=== PATIENT | male | born 1965 ===

== ENCOUNTER 2016-12-08 17:59 | Inpatient (IN) | payer MEDICAID ==
[2016-12-08] MEDS ORDERED: Sodium Chloride 0.9% 500 ML IV STA (18:07)
[2016-12-08] MEDS ORDERED: Albuterol-Ipratrop 3 mg / 0.5 (3 ml) UD IH STA ×2 (18:08→18:11)
[2016-12-08] MEDS ORDERED: Albuterol-Ipratrop 3 mg / 0.5 (3 ml) UD INH STA (18:08)
--- NOTE | 2016-12-08 18:10 | ED PDOC ---
HPI: SOB/CHF/COPD Time Seen by Provider: 12/08/16 18:07 Chief Complaint (Nursing): Shortness Of Breath Chief Complaint (Provider): Dyspnea History Per: Patient, EMS, Family History/Exam Limitations: no limitations Onset/Duration Of Symptoms: Days (3) Current Symptoms Are (Timing): Still Present Additional Complaint(s): Cough, nasal congestion, dyspnea, chest pain going to the back for 3 days. Tried tylenol that helped but symptoms come back in the morning. Pt. called EMS as symptoms present. Pt. with no leg pain, long distance travel, hormone tx. Has no medical issues per pt. No nausea, vomit, diarrhea, weakness, numbness, tingles. 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 Past Medical History Reviewed: Nursing Documentation, Vital Signs Vital Signs: Last Vital Signs Temp Pulse 123 H 12/08/16 18:27 Resp 22 12/08/16 18:00 BP 149/106 H 12/08/16 18:27 Pulse Ox 98 12/08/16 18:18 - Medical History PMH: No Chronic Diseases - Surgical History Surgical History: No Surg Hx - Family History Family History: States: Unknown Family Hx - Living Arrangements Living Arrangements: With Family - Social History Current smoker - smoking cessation education provided: No Alcohol: None Drugs: Denies - Home Medications Home Medications: Ambulatory Orders Medication Instructions Recorded No Known Home Med 12/08/16 - Allergies Allergies/Adverse Reactions: Allergies Allergy/AdvReac Type Severity Reaction Status Date / Time No Known Allergies Allergy Verified 12/08/16 17:59 Review of Systems ROS Statement: Except As Marked, All Systems Reviewed And Found Negative Cardiovascular: Positive for: Chest Pain Respiratory: Positive for: Cough, Shortness of Breath Musculoskeletal: Positive for: Back Pain Physical Exam - Reviewed Nursing Documentation Reviewed: Yes Vital Signs Reviewed: Yes - Physical Exam Appears: Positive for: Uncomfortable Head Exam: Positive for: ATRAUMATIC, NORMAL INSPECTION, NORMOCEPHALIC Skin: Positive for: Normal Color, Warm, DRY Eye Exam: Positive for: EOMI, Normal appearance, PERRL ENT: Positive for: Nasal Congestion Neck: Positive for: Normal, Painless ROM, Supple Cardiovascular/Chest: Positive for: Chest Non Tender, Tachycardia (sinus mild) Respiratory: Positive for: Decreased Breath Sounds, Accessory Muscle Use (mild) , Wheezing (diffuse) Gastrointestinal/Abdominal: Positive for: Normal Exam, Bowel Sounds, Soft. Negative for: Tenderness Back: Positive for: Normal Inspection. Negative for: L CVA Tenderness, R CVA Tenderness Extremity: Positive for: Normal ROM. Negative for: Tenderness, Pedal Edema Neurologic/Psych: Positive for: Alert, Oriented - Laboratory Results Result Diagrams: 12/08/16 18:17 12/08/16 18:17 Interpretation Of Abn Labs: elevated probnp - ECG ECG: Positive for: Interpreted By Me, Viewed By Me ECG Rhythm: Positive for: Sinus Tachycardia, Nonspecific Changes O2 Sat by Pulse Oximetry: 98 - Radiology X-Ray: Interpreted by Me, Viewed By Me X-Ray Interpretation: Heart Size (enlarged and vascular congestion) - Progress ED Course And Treament: 190: Stable. Dr. Paez to take over care. Fu on labs and ct. Disposition - Clinical Impression Clinical Impression: CHF (congestive heart failure) - Patient ED Disposition Is Patient to be Admitted: Transfer of Care - Disposition Disposition: Transfer of Care Disposition Time: 19:03 Condition: FAIR Patient Signed Over To: Spencer Paez
[2016-12-08 18:16] LABS: ABG ALLEN TEST YES; ARTERIAL BLOOD GAS HCO3 23.4 mmol/L (21-28); ARTERIAL BLOOD GAS PH 7.37 (7.35-7.45); ARTERIAL BLOOD GAS PO2 99 mm/Hg (80-100)
[2016-12-08 18:28] LABS: BASO % 0.3 % (0.0-2.0); EOS # 0.2 K/uL (0.0-0.7); EOS % 1.9 % (0.0-4.0); HEMATOCRIT 45.9 % (35.0-51.0); LYMPH # 1.7 K/uL (1.0-4.3); LYMPH % 16.5 % (20.0-40.0); MEAN CELL VOLUME 85.6 fl (80.0-94.0); MEAN CORPUSCULAR HEMOGLOBIN 28.1 pg (27.0-31.0); MEAN CORPUSCULAR HGB CONC 32.8 g/dL (33.0-37.0); MONO # 0.6 K/uL (0.0-0.8); MONO % 5.7 % (0.0-10.0); NEUT % 75.6 % (50.0-75.0); NRBC % 0.1 % (0.0-0.0); RED CELL DISTRIBUTION WIDTH 16.5 % (11.5-14.5); WHITE BLOOD COUNT 10.6 K/uL (4.8-10.8)
[2016-12-08] MEDS ORDERED: Iodixanol 320 MG/ML 100 ML BOTTLE IV ONE (18:35)
[2016-12-08] MEDS ORDERED: Sodium Chloride 0.9% 50 ML IV ONE (18:35)
[2016-12-08 18:45] LABS: ALB/GLOB RATIO 1.2 (1.0-2.1); ALKALINE PHOSPHATASE 135 U/L (38-126); ALT/SGPT 61 U/L (21-72); AST/SGOT 43 U/L (17-59); BILIRUBIN,TOTAL 0.8 mg/dl (0.2-1.3); BLOOD UREA NITROGEN 15 mg/dl (9-20); CALCIUM 8.9 mg/dL (8.4-10.2); CARBON DIOXIDE 27 mmol/L (22-30); CHLORIDE 104 mmol/L (98-107); GFR AFRICAN-AMERICAN > 60; GLUCOSE,RANDOM 139 mg/dL (75-110); PHOSPHOROUS 3.9 mg/dl (2.5-4.5); POTASSIUM 3.6 MMOL/L (3.6-5.0); SODIUM 142 mmol/l (132-148); TOTAL PROTEIN 7.5 G/DL (6.3-8.2)
--- NOTE | 2016-12-08 19:20 | ED PDOC ---
- Laboratory Results Result Diagrams: 12/08/16 18:17 12/08/16 18:17 - ECG O2 Sat by Pulse Oximetry: 98 Pulse Ox Interpretation: Normal - CT Scan/US CT Chest Other Rad Studies (CT/US): Interpreted By Me, Read By Radiologist, Radiology Report Reviewed - Progress Re-evaluation Time: 21:00 Condition: Re-examined, Improving,but remains with symptoms - Physician Consult Information Time Consulting Physican Contacted: 20:00 Physician Contacted: Bill Lindquist Medical Decision Making Medical Decision Makin:00 Patient transferred over to provider from Dr. Mars. Pending CT Chest, will be admit to the hospital for congestive heart failure. 19:28 CT Chest Results FINDINGS: Artifacts: Motion artifact degrades image quality. Heart, aorta and Pulmonary arteries: The heart is mildly enlarged. There is trace fluid in pericardial recesses. Aorta is normal in caliber. There is minimal atherosclerotic calcification Main pulmonary artery is normal in caliber. There are no pulmonary emboli. Aorta: See above. Lungs and pleural spaces: Trachea and main bronchi are patent. There is small blebs at the right apex. There are moderately large bilateral pleural effusions right greater than left. There are patchy parenchymal opacities in aerated lung zones bilaterally. There are atelectatic changes in the lower lobes. Mediastinum: There are moderately enlarged mediastinal nodes. There are prominent hilar nodes. Esophagus is not optimally evaluated. There is a small hiatal hernia. Thyroid: Thyroid is not optimally demonstrated. Bones/joints: There are no acute osseous abnormalities. Soft tissues: Unremarkable. Upper abdomen: There are no acute abnormalities in the visualized portion of the abdomen. IMPRESSION: Patchy bilateral parenchymal opacities suggesting pneumonia with bilateral pleural effusions right greater than left; mild cardiomegaly, no pulmonary embolus; prominent mediastinal and hilar nodes. 19:30 Patient's condition is critical, will admit under Dr. Gan. Scribe Attestation: Documented by Alon Pitts, acting as a scribe for Spencer Paez MD. Provider Scribe Attestation: All medical record entries made by the Scribe were at my direction and personally dictated by me. I have reviewed the chart and agree that the record accurately reflects my personal performance of the history, physical exam, medical decision making, and the department course for this patient. I have also personally directed, reviewed, and agree with the discharge instructions and disposition. Disposition Discussed With : Cruz Gan Doctor Will See Patient In The: ED Counseled Patient/Family Regarding: Studies Performed, Diagnosis - Clinical Impression Clinical Impression: CHF (congestive heart failure) - POA Present On Arrival: None - Disposition Disposition: Admitted as In-Patient Disposition Time: 19:30 Condition: CRITICAL
--- NOTE | 2016-12-08 19:28 | CT ---
EXAM: CT Angiography Chest With Intravenous Contrast CLINICAL HISTORY: 51 years old, male; Signs and symptoms; Shortness of breath; Additional info: Chest pain TECHNIQUE: Axial computed tomographic angiography images of the chest with intravenous contrast using pulmonary embolism protocol. This CT exam was performed using one or more of the following dose reduction techniques: automated exposure control, adjustment of the mA and/or kV according to patient size, and/or use of iterative reconstruction technique. MIP reconstructed images were created and reviewed. Coronal and sagittal reformatted images were created and reviewed. CONTRAST: 90 mL of [id number] administered intravenously. EXAM DATE/TIME: 12/08/2016 6:08 PM COMPARISON: There are no prior studies for comparison. FINDINGS: Artifacts: Motion artifact degrades image quality. Heart, aorta and Pulmonary arteries: The heart is mildly enlarged.There is trace fluid in pericardial recesses. Aorta is normal in caliber. There is minimal atherosclerotic calcification Main pulmonary artery is normal in caliber. There are no pulmonary emboli. Aorta: see above Lungs and pleural spaces: Trachea and main bronchi are patent. There is small blebs at the right apex There are moderately large bilateral pleural effusions right greater than left. There are patchy parenchymal opacities in aerated lung zones bilaterally. There are atelectatic changes in the lower lobes. Mediastinum: There are moderately enlarged mediastinal nodes. There are prominent hilar nodes. Esophagus is not optimally evaluated. There is a small hiatal hernia. Thyroid: Thyroid is not optimally demonstrated. Bones/joints: There are no acute osseous abnormalities Soft tissues: unremarkable Upper abdomen: There are no acute abnormalities in the visualized portion of the abdomen. IMPRESSION: Patchy bilateral parenchymal opacities suggesting pneumonia with bilateral pleural effusions right greater than left; mild cardiomegaly, no pulmonary embolus; prominent mediastinal and hilar nodes Additional findings as described above.
[2016-12-08] MEDS ORDERED: Azithromycin 500 MG in Sodium Chloride 0.9% 250 ML IVPB STA (19:30)
[2016-12-08] MEDS ORDERED: cefTRIAXone (Rocephin) 1 gm Inj ONE (19:37)
--- NOTE | 2016-12-08 20:20 | CP.PCM.HP ---
History of Present Illness - History of Present Illness History of Present Illness: PCP: None Chief Complaint: SOB HPI: 51 years old male with No significant past medical hx comes with a one week of SOB on exertion to now worse occurring at rest. Associated with Generalized chest pain radiating to the back for 3 days, on exertion . He refers palpitation, mild abdominal pain, edema of the lower extremities and fever, non productive cough, Throat ache, nasal congestion. no nausea, vomits, diarrhea, dysuria nor weakness. 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 Former Smoker; No alcohol recently; No illegal drugs; Live alone FH: HTN, Father with Infarct, Allergies: NKDA Present on Admission - Present on Admission Any Indicators Present on Admission: No History of DVT/PE: No History of Uncontrolled Diabetes: No Urinary Catheter: No Decubitus Ulcer Present: No Review of Systems - Constitutional Constitutional: Fever. absent: Chills, Fatigue, Headache - EENT Eyes: Requires Corrective Lenses. absent: Diplopia, Floaters, Photophobia Nose/Mouth/Throat: absent: Epistaxis, Nasal Congestion, Sinus Pain, Sinus Pressure, Hoarsness - Cardiovascular Cardiovascular: Chest Pain, Dyspnea, Palpitations - Respiratory Respiratory: Cough, Dyspnea, Chest Congestion - Gastrointestinal Gastrointestinal: absent: Abdominal Pain, Constipation, Cramping, Diarrhea - Genitourinary Genitourinary: absent: Dysuria, Flank Pain, Hematuria, Urinary Hesitance - Musculoskeletal Musculoskeletal: absent: Back Pain, Joint Swelling, Neck Pain - Integumentary Integumentary: absent: Pruritus, Rash, Skin Ulcer, Sores, Striae, Swelling - Neurological Neurological: absent: Focal Weakness, Headaches, Weakness - Psychiatric Psychiatric: Anxiety, Depression, Panic Attacks - Endocrine Endocrine: Palpitations. absent: Fatigue - Hematologic/Lymphatic Hematologic: absent: Easy Bleeding, Easy Bruising Past Patient History - Past Medical History & Family History Past Medical History?: No - Past Social History Smoking Status: Former Smoker Chewing Tobacco Use: No Cigar Use: No Alcohol: None Drugs: Denies Home Situation {Lives}: Alone - CARDIAC Hx Cardiac Disorders: No - PULMONARY Hx Respiratory Disorders: No - NEUROLOGICAL Hx Neurological Disorder: No - HEENT Hx HEENT Problems: No - RENAL Hx Chronic Kidney Disease: No - ENDOCRINE/METABOLIC Hx Endocrine Disorders: No - HEMATOLOGICAL/ONCOLOGICAL Hx Blood Disorders: No - INTEGUMENTARY Hx Dermatological Problems: No - MUSCULOSKELETAL/RHEUMATOLOGICAL Hx Musculoskeletal Disorders: No - GASTROINTESTINAL Hx Gastrointestinal Disorders: No - GENITOURINARY/GYNECOLOGICAL Hx Genitourinary Disorders: No - PSYCHIATRIC Hx Psychophysiologic Disorder: No Hx Substance Use: No - SURGICAL HISTORY Hx Surgeries: No - ANESTHESIA Hx Anesthesia: No Meds Allergies/Adverse Reactions: Allergies Allergy/AdvReac Type Severity Reaction Status Date / Time No Known Allergies Allergy Verified 12/08/16 17:59 Physical Exam - Constitutional Appears: In Acute Distress - Head Exam Head Exam: ATRAUMATIC, NORMAL INSPECTION, NORMOCEPHALIC - Eye Exam Eye Exam: EOMI, Normal appearance, PERRL Pupil Exam: PERRL - ENT Exam ENT Exam: Mucous Membranes Moist, Normal Exam, Normal External Ear Exam, Normal Oropharynx - Neck Exam Neck exam: Positive for: Full Rom, Normal Inspection. Negative for: Lymphadenopathy, Tenderness - Respiratory Exam Respiratory Exam: Rales. absent: Rhonchi, Wheezes - Cardiovascular Exam Cardiovascular Exam: RRR, +S1, +S2. absent: Gallop, JVD - GI/Abdominal Exam Additional comments: Full, Soft, non tender, +ve bowel sounds, no rebounding tenederness, no guarding. - Rectal Exam Rectal Exam: Deferred - Extremities Exam Extremities exam: Positive for: normal inspection. Negative for: calf tenderness, full ROM, tenderness - Back Exam Back exam: NORMAL INSPECTION. absent: CVA tenderness (L), CVA tenderness (R) - Neurological Exam Neurological exam: Alert, CN II-XII Intact, Oriented x3, Reflexes Normal - Psychiatric Exam Psychiatric exam: Normal Affect, Normal Mood - Skin Skin Exam: Dry, Intact, Normal Color, Warm Results - Vital Signs Recent Vital Signs: Last Vital Signs Temp 99 F 12/08/16 19:08 Pulse 106 H 12/08/16 20:03 Resp 30 H 12/08/16 19:33 BP 162/104 H 12/08/16 20:03 Pulse Ox 98 12/08/16 20:16 - Labs Result Diagrams: 12/08/16 18:17 12/08/16 18:17 Labs: Laboratory Results - last 24 hr 12/08/16 12/08/16 12/08/16 18:10 18:17 18:17 WBC 10.6 RBC 5.36 Hgb 15.1 Hct 45.9 MCV 85.6 MCH 28.1 MCHC 32.8 L RDW 16.5 H Plt Count 200 MPV 10.0 Neut % (Auto) 75.6 H Lymph % (Auto) 16.5 L [place] % (Auto) 5.7 Eos % (Auto) 1.9 Baso % (Auto) 0.3 Neut # 8.0 H Lymph # 1.7 [place] # 0.6 Eos # 0.2 Baso # 0.0 pCO2 40 pO2 99 HCO3 23.4 ABG pH 7.37 ABG Total CO2 24.3 ABG O2 Saturation 100.2 H ABG Base Excess -2.0 Noe Test Yes ABG Potassium 4.2 A-a O2 Difference 564.0 Sodium 140.0 142 Chloride 107.0 104 Glucose 126 H Lactate 2.3 H FiO2 100.0 Potassium 3.6 Carbon Dioxide 27 Anion Gap 13 BUN 15 Creatinine 1.0 Est GFR ( Amer) > 60 Est GFR (Non-Af Amer) > 60 Random Glucose 139 H Calcium 8.9 Phosphorus 3.9 Magnesium 2.0 Total Bilirubin 0.8 AST 43 ALT 61 Alkaline Phosphatase 135 H Troponin I 0.0430 NT-Pro-B Natriuret Pep 4780 H Total Protein 7.5 Albumin 4.1 Globulin 3.4 Albumin/Globulin Ratio 1.2 TSH 3rd Generation Arterial Blood Potassium 4.2 12/08/16 19:38 WBC RBC Hgb Hct MCV MCH MCHC RDW Plt Count MPV Neut % (Auto) Lymph % (Auto) [place] % (Auto) Eos % (Auto) Baso % (Auto) Neut # Lymph # [place] # Eos # Baso # pCO2 pO2 HCO3 ABG pH ABG Total CO2 ABG O2 Saturation ABG Base Excess Noe Test ABG Potassium A-a O2 Difference Sodium Chloride Glucose Lactate FiO2 Potassium Carbon Dioxide Anion Gap BUN Creatinine Est GFR ( Amer) Est GFR (Non-Af Amer) Random Glucose Calcium Phosphorus Magnesium Total Bilirubin AST ALT Alkaline Phosphatase Troponin I NT-Pro-B Natriuret Pep Total Protein Albumin Globulin Albumin/Globulin Ratio TSH 3rd Generation 3.33 Arterial Blood Potassium - EKG Data EKG comments: Sinus tachycardia 114/min - Imaging and Cardiology CT scan - chest Status: Report reviewed by me Additional comment: CT Chest Results FINDINGS: Artifacts: Motion artifact degrades image quality. Heart, aorta and Pulmonary arteries: The heart is mildly enlarged. There is trace fluid in pericardial recesses. Aorta is normal in caliber. There is minimal atherosclerotic calcification Main pulmonary artery is normal in caliber. There are no pulmonary emboli. Aorta: See above. Lungs and pleural spaces: Trachea and main bronchi are patent. There is small blebs at the right apex. There are moderately large bilateral pleural effusions right greater than left. There are patchy parenchymal opacities in aerated lung zones bilaterally. There are atelectatic changes in the lower lobes. Mediastinum: There are moderately enlarged mediastinal nodes. There are prominent hilar nodes. Esophagus is not optimally evaluated. There is a small hiatal hernia. Thyroid: Thyroid is not optimally demonstrated. Bones/joints: There are no acute osseous abnormalities. Soft tissues: Unremarkable. Upper abdomen: There are no acute abnormalities in the visualized portion of the abdomen. IMPRESSION: Patchy bilateral parenchymal opacities suggesting pneumonia with bilateral pleural effusions right greater than left; mild cardiomegaly, no pulmonary embolus; prominent mediastinal and hilar nodes. Chest x-ray Status: Image reviewed by me Additional comment: Cardiomegaly Bilatertal interstitialinfiltrate Assessment & Plan - Assessment and Plan (Free Text) Assessment: #. Pulmonary Edema #. Acute CHF Plan: 51 years old male with No significant past medical hx comes with a one week of SOB on exertion to now worse occurring at rest. Associated with Generalized chest , palpitation, mild abdominal pain, edema of the lower extremities and fever, non productive cough, Throat ache, nasal congestion. #. Pulmonary Edema. Bilateral Pneumonia as stated is less likely -IV lasix given in ED - BIPAP at 10/5 rate of 12 and FiO2 60% - Vancomycin and Zosyn given in ED - Continue Empiric Zosyn and Vancomycin and if Procalcitonin is normal then Discontinue antibiotic #. Acute CHF - Consult Dr Lindquist Cardiology - ECHO for Chamber size, wall thickness and EF, wall motion - Troponin series - Coreg/Lisinopril/ IV Lasix #. Elevated Blood Pressure - Sodium Nitroprusside started in [facility] ED - Titrate Lisinopril and Coreg - Monitor Blood pressure #. DVT Prophylaxis with Lovenox #. Code Status: Full - Date & Time Date: 12/08/16 Time: 20:20
[2016-12-08 20:21] LABS: PARTIAL THROMBOPLASTIN TIME 28.8 Seconds (25.6-37.1)
[2016-12-08 21:14] LABS: RBC URINE 3 /hpf (0-3); URINE BILIRUBIN NEGATIVE (NEGATIVE); URINE BLOOD NEGATIVE (NEGATIVE); URINE COLOR YELLOW (YELLOW); URINE GLUCOSE (UA) NEG (Normal); URINE KETONE NEGATIVE (NEGATIVE); URINE LEUKOCYTE ESTERASE NEG Leu/uL (Negative); URINE PROTEIN 100 mg/dL (NEGATIVE); URINE UROBILINOGEN 0.2-1.0 mg/dL (0.2-1.0); WBC URINE 2 /hpf (0-5)
[2016-12-08 22:02] LABS: VENOUS BLOOD GAS BASE EXCESS 2.4 mmol/L (0.0-2.0); VENOUS BLOOD GAS PCO2 58 mmHg (40-60); VENOUS BLOOD PH 7.32 (7.32-7.43)
[2016-12-09 05:14] LABS: ABG ALLEN TEST YES; ABG MECHANICAL RATE 12; ARTERIAL BLOOD GAS HCO3 26.2 mmol/L (21-28); ARTERIAL BLOOD GAS MODE BiPAP; ARTERIAL BLOOD GAS O2 CAPACITY 19.1 mL/dL (16-24); ARTERIAL BLOOD GAS O2 CONTENT 18.8 ML/dL (15-23); ARTERIAL BLOOD GAS PH 7.41 (7.35-7.45); ARTERIAL BLOOD GAS PO2 90 mm/Hg (80-100); ARTERIAL BLOOD HGB O2 SAT 94.7 % (95.0-98.0); HHB 1.5 % (0.0-5.0); METHEMOGLOBIN 1.8 % (0.0-3.0)
[2016-12-09 05:26] LABS: HEMATOCRIT 40.5 % (35.0-51.0); MEAN CELL VOLUME 85.9 fl (80.0-94.0); MEAN CORPUSCULAR HEMOGLOBIN 28.5 pg (27.0-31.0); MEAN CORPUSCULAR HGB CONC 33.1 g/dL (33.0-37.0); RED CELL DISTRIBUTION WIDTH 16.6 % (11.5-14.5); WHITE BLOOD COUNT 9.8 K/uL (4.8-10.8)
[2016-12-09 05:49] LABS: BLOOD UREA NITROGEN 12 mg/dl (9-20); CALCIUM 8.6 mg/dL (8.4-10.2); CARBON DIOXIDE 25 mmol/L (22-30); CHLORIDE 106 mmol/L (98-107); CHOLESTEROL 133 mg/dL (0-199); GFR AFRICAN-AMERICAN > 60; GLUCOSE,RANDOM 143 mg/dL (75-110); SODIUM 141 mmol/l (132-148)
--- NOTE | 2016-12-09 07:14 | CP.PCM.CON ---
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 Denies pedal edema / palpitations / chest pain CT Chest: multiple pulmonary infiltrates ++ Mediastinal and Hilar nodes EKG: Sinus tachycardia Troponin: neg BNP: 4780 Past Patient History - Past Medical History & Family History Past Medical History?: No - Past Social History Smoking Status: Former Smoker Chewing Tobacco Use: No Cigar Use: No Alcohol: None Drugs: Denies Home Situation {Lives}: Alone - CARDIAC Hx Cardiac Disorders: No - PULMONARY Hx Respiratory Disorders: No - NEUROLOGICAL Hx Neurological Disorder: No - HEENT Hx HEENT Problems: No - RENAL Hx Chronic Kidney Disease: No - ENDOCRINE/METABOLIC Hx Endocrine Disorders: No - HEMATOLOGICAL/ONCOLOGICAL Hx Blood Disorders: No - INTEGUMENTARY Hx Dermatological Problems: No - MUSCULOSKELETAL/RHEUMATOLOGICAL Hx Musculoskeletal Disorders: No - GASTROINTESTINAL Hx Gastrointestinal Disorders: No - GENITOURINARY/GYNECOLOGICAL Hx Genitourinary Disorders: No - PSYCHIATRIC Hx Psychophysiologic Disorder: No Hx Substance Use: No - SURGICAL HISTORY Hx Surgeries: No - ANESTHESIA Hx Anesthesia: No Meds Allergies/Adverse Reactions: Allergies Allergy/AdvReac Type Severity Reaction Status Date / Time No Known Allergies Allergy Verified 12/08/16 17:59 - Medications Medications: Current Medications Carvedilol (Coreg) 3.125 mg PO Q12 [facility] Enoxaparin Sodium (Lovenox) 40 mg SC DAILY [facility] PRN Reason: Protocol Furosemide (Lasix) 40 mg IV BID [place] Lisinopril (Zestril) 5 mg PO DAILY [facility] Nitroglycerin (Nitro-Bid 2% Oint) 1 inch TOP QID [facility] Physical Exam - Constitutional Appears: No Acute Distress - ENT Exam ENT Exam: Normal Exam - Neck Exam Neck exam: Positive for: Normal Inspection - Respiratory Exam Respiratory Exam: Decreased Breath Sounds, Rhonchi - Cardiovascular Exam Cardiovascular Exam: REGULAR RHYTHM Results - Vital Signs Recent Vital Signs: Last Vital Signs Temp 97.9 F 12/09/16 06:00 Pulse 74 12/09/16 06:00 Resp 20 12/09/16 06:00 BP 146/82 12/09/16 06:00 Pulse Ox 93 L 12/09/16 06:00 - Labs Result Diagrams: 12/09/16 04:40 12/09/16 04:40 Labs: Laboratory Results - last 24 hr 12/08/16 12/08/16 12/08/16 19:30 19:38 21:58 WBC RBC Hgb Hct MCV MCH MCHC RDW Plt Count pCO2 pO2 30 HCO3 ABG pH ABG Total CO2 ABG O2 Saturation ABG O2 Content ABG Base Excess ABG Hemoglobin ABG Carboxyhemoglobin POC ABG HHb (Measured) ABG Methemoglobin ABG O2 Capacity Noe Test VBG pH 7.32 VBG pCO2 58 VBG HCO3 25.5 VBG Total CO2 31.7 H VBG O2 Sat (Calc) 47.8 VBG Base Excess 2.4 H VBG Potassium 4.0 A-a O2 Difference 47.0 Hgb O2 Saturation Sodium 141.0 Chloride 105.0 Glucose 141 H Lactate 2.2 H Vent Mode Mechanical Rate FiO2 21.0 Inspiratory BiPAP Expiratory BiPAP Crit Value Called To Fernando watson Crit Value Called By 15 Crit Value Read Back Y Blood Gas Notified Time 2201 Potassium Carbon Dioxide Anion Gap BUN Creatinine Est GFR ( Amer) Est GFR (Non-Af Amer) Random Glucose Calcium Troponin I Triglycerides Cholesterol LDL Cholesterol Direct HDL Cholesterol TSH 3rd Generation 3.33 Venous Blood Potassium 4.0 Urine Color Yellow Urine Clarity Clear Urine pH 6.0 Ur Specific [place] 1.049 H Urine Protein 100 Urine Glucose (UA) Neg Urine Ketones Negative Urine Blood Negative Urine Nitrate Negative Urine Bilirubin Negative Urine Urobilinogen 0.2-1.0 Ur Leukocyte Esterase Neg Urine RBC (Auto) 3 Urine Microscopic WBC 2 12/09/16 12/09/16 12/09/16 04:40 04:40 05:05 WBC 9.8 RBC 4.71 Hgb 13.4 Hct 40.5 MCV 85.9 MCH 28.5 MCHC 33.1 RDW 16.6 H Plt Count 194 pCO2 42 pO2 90 HCO3 26.2 ABG pH 7.41 ABG Total CO2 27.9 ABG O2 Saturation 98.4 H ABG O2 Content 18.8 ABG Base Excess 1.7 ABG Hemoglobin 14.1 ABG Carboxyhemoglobin 2.0 H POC ABG HHb (Measured) 1.5 ABG Methemoglobin 1.8 ABG O2 Capacity 19.1 Noe Test Yes VBG pH VBG pCO2 VBG HCO3 VBG Total CO2 VBG O2 Sat (Calc) VBG Base Excess VBG Potassium A-a O2 Difference 285.0 Hgb O2 Saturation 94.7 L Sodium 141 Chloride 106 Glucose Lactate Vent Mode Bipap Mechanical Rate 12 FiO2 60.0 Inspiratory BiPAP 10 Expiratory BiPAP 5 Crit Value Called To Crit Value Called By Crit Value Read Back Blood Gas Notified Time Potassium 4.0 Carbon Dioxide 25 Anion Gap 14 BUN 12 Creatinine 0.7 L Est GFR ( Amer) > 60 Est GFR (Non-Af Amer) > 60 Random Glucose 143 H Calcium 8.6 Troponin I 0.0340 Triglycerides 56 Cholesterol 133 LDL Cholesterol Direct 83 HDL Cholesterol 36 TSH 3rd Generation Venous Blood Potassium Urine Color Urine Clarity Urine pH Ur Specific [place] Urine Protein Urine Glucose (UA) Urine Ketones Urine Blood Urine Nitrate Urine Bilirubin Urine Urobilinogen Ur Leukocyte Esterase Urine RBC (Auto) Urine Microscopic WBC Assessment & Plan (1) Pneumonia Status: Acute (2) CHF (congestive heart failure) Assessment and Plan: The pt has an element of CHF the main problem seems to be pulmonary in origin Status: Acute
--- NOTE | 2016-12-09 08:52 | CARD ---
APPROVED REPORT EKG Measurement Heart [id number] <Conclusion> Sinus tachycardia Possible Left atrial enlargement Left ventricular hypertrophy with repolarization abnormality Abnormal ECG
[2016-12-09] MEDS: Enoxaparin 40 mg Syringe SC SCH (08:55)
[2016-12-09] MEDS: Nitroglycerin 2% 15 INCH/30 GM TUBE TOP SCH ×4 (08:56→21:38)
--- NOTE | 2016-12-09 10:10 | RAD ---
HISTORY: Follow up Pulmonary infiltrate COMPARISON: 12/08/2016 FINDINGS: LUNGS: Technically limited examination. Extensive infiltrate mid and lower right lung. Left-sided infiltrate has resolved. Cannot evaluate lower left lung due to superimposed cardiac silhouette and underpenetration. Follow-up advised. PLEURA: Small right pleural effusion. No evidence of left pleural effusion. No pneumothorax. CARDIOVASCULAR: Mild congestive change. OSSEOUS STRUCTURES: No significant abnormalities. VISUALIZED UPPER ABDOMEN: Normal. OTHER FINDINGS: None. IMPRESSION: Extensive right-sided pulmonary infiltrate. Followup advised. Small right pleural effusion new since prior examination. No left-sided infiltrate appreciated.
--- NOTE | 2016-12-09 10:41 | RAD ---
HISTORY: Sepsis Patient COMPARISON: December 08, 2016. CT angiogram thorax FINDINGS: LUNGS: Multifocal bilateral infiltrates. PLEURA: Right pleural effusion identified. CARDIOVASCULAR: Cardiomegaly. OSSEOUS STRUCTURES: No significant abnormalities. VISUALIZED UPPER ABDOMEN: Normal. OTHER FINDINGS: None. IMPRESSION: Multifocal pulmonary alveolar infiltrates.
--- NOTE | 2016-12-09 12:00 | CP.PCM.PN ---
Subjective - Date & Time of Evaluation Date of Evaluation: 12/09/16 Time of Evaluation: 12:00 - Subjective Subjective: patient on bipap 04/13 60% ABG stable this am, no changes ECHO for today troponins negative vitals stable no acute distress Objective - Vital Signs/Intake and Output Vital Signs (last 24 hours): Temp Pulse Resp BP Pulse Ox 97.6 F 79 18 125/87 98 12/09/16 07:39 12/09/16 11:55 12/09/16 10:00 12/09/16 10:00 12/09/16 10:00 Intake and Output: 12/09/16 12/09/16 06:59 18:59 Intake Total 80 400 Output Total 500 1200 Balance -420 -800 - Medications Medications: Current Medications Carvedilol (Coreg) 3.125 mg PO Q12 [facility] Last Admin: 12/09/16 08:54 Dose: 3.125 mg Enoxaparin Sodium (Lovenox) 40 mg SC DAILY [facility] PRN Reason: Protocol Last Admin: 12/09/16 08:55 Dose: 40 mg Furosemide (Lasix) 40 mg IV BID [facility] Last Admin: 12/09/16 08:55 Dose: 40 mg Lisinopril (Zestril) 5 mg PO DAILY [facility] Last Admin: 12/09/16 08:56 Dose: 5 mg Nitroglycerin (Nitro-Bid 2% Oint) 1 inch TOP QID [facility] Last Admin: 12/09/16 08:56 Dose: 1 inch - Labs Labs: 12/09/16 04:40 12/09/16 04:40 PT 13.5 Seconds (9.8-13.1) H 12/08/16 18:17 INR 1.2 (0.9-1.2) 12/08/16 18:17 APTT 28.8 Seconds (25.6-37.1) 12/08/16 18:17 - Constitutional Appears: Non-toxic, No Acute Distress - Head Exam Head Exam: ATRAUMATIC, NORMOCEPHALIC - Eye Exam Eye Exam: EOMI, Normal appearance, PERRL Pupil Exam: NORMAL ACCOMODATION - ENT Exam ENT Exam: Mucous Membranes Moist, Normal Oropharynx - Respiratory Exam Respiratory Exam: Clear to Ausculation Bilateral, NORMAL BREATHING PATTERN - Cardiovascular Exam Cardiovascular Exam: RRR, +S1, +S2. absent: Gallop, Rubs - GI/Abdominal Exam GI & Abdominal Exam: Soft, Normal Bowel Sounds. absent: Tenderness, Mass, Organomegaly - Extremities Exam Extremities Exam: Full ROM, Normal Capillary Refill - Back Exam Back Exam: absent: CVA tenderness (L), CVA tenderness (R) - Neurological Exam Neurological Exam: Alert, Awake, Oriented x3 - Psychiatric Exam Psychiatric exam: Normal Affect, Normal Mood - Skin Skin Exam: Dry, Warm Assessment and Plan - Assessment and Plan (Free Text) Plan: 51 years old male with No significant past medical hx comes with a one week of SOB on exertion to now worse occurring at rest. Associated with Generalized chest , palpitation, mild abdominal pain, edema of the lower extremities and fever, non productive cough, Throat ache, nasal congestion. Pulmonary Edema. Bilateral Pneumonia as stated is less likely - IV lasix given in ED - Continue lasix q12 - BIPAP at 10/5 rate of 12 and FiO2 60% - Vancomycin and Zosyn given in ED - Continue Empiric Zosyn and Vancomycin and if Procalcitonin is normal then Discontinue antibiotic - follow up procalcitonin. Acute CHF - Consult Dr Lindquist Cardiology appreciated - ECHO for Chamber size, wall thickness and EF, wall motion - Troponin series negative - Coreg/Lisinopril/ IV Lasix Elevated Blood Pressure - Sodium Nitroprusside started in [facility] ED, d/c this morning, pressure well controlled - Titrate Lisinopril and Coreg - Monitor Blood pressure DVT Prophylaxis with Lovenox Code Status: Full
--- NOTE | 2016-12-09 17:56 | CP.CCUPN ---
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 He is alert and responsive, placed on BiPAP support in the ER, on 60% oxygen, 10/5 pressures and RR 17, SPO2 100%. Also, placed on Nitroprusside low dose drip , given empiric doses of Rocephin and Azithro in the RER. Other vitals: Afebrile, no fever spikes; BP 128/72 HR 82, 97% SPO2. Allergies: NKDA Home meds: none ROS: as above, no other pertinent negs or positives on 10 system review. PMFSH: all nursing and historical notes reviewed, no new pertinent data relevant to current problems. No other distress noted: EXAM- HEENT: no icterus, pupils equal and reactive NECK: no visible JVD, supple, carotids equal upstroke bilat/no bruits CHEST: decreased BS bases, no wheezes HEART: regular, distant, S1S2, no murmur audible, no rubs. ABD: soft, no increased distention, no focal tenderness, no HSM. BS hypoactive , EXT: no peripheral/ digital cyanosis, no calf tenderness or palpable cords, distal pulses intact and symmetrical NEURO: no gross focal motor deficits SKIN: no rashes LABS: WBC= 9.8 HGB= 13.4 PLTs= 194K 7.41/42/90 Na= 141 K= 4.0 HCO3= 25 BUN/Cr= 12/0.7 BS= 143 Procalc= 0.05 CXR: bibasilar haziness and interstitial changes (my interp). EKG: sinus 114, poor R progression, lateral wall st t changes. MAJOR PROBLEMS NOW: 1. CHF / Pulm Edema 2. r/o AMI PLAN: 1. 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 2. Lasix IV prn to keep negative fluid balance. 3. Hold on further empiric abx therapy, though CT Chest suggests Pneumonia. 4. ECHO. Serial Trops 5. Reprieve off BiPAP support to nasal cannula oxygen as tolerated.
[2016-12-10 04:42] LABS: ABG ALLEN TEST YES; ABG MECHANICAL RATE 12; ARTERIAL BLOOD GAS HCO3 29.6 mmol/L (21-28); ARTERIAL BLOOD GAS MODE BiPAP; ARTERIAL BLOOD GAS O2 CAPACITY 18.7 mL/dL (16-24); ARTERIAL BLOOD GAS O2 CONTENT 18.5 ML/dL (15-23); ARTERIAL BLOOD GAS PH 7.42 (7.35-7.45); ARTERIAL BLOOD GAS PO2 98 mm/Hg (80-100); ARTERIAL BLOOD HGB O2 SAT 95.1 % (95.0-98.0); HHB 1.1 % (0.0-5.0); METHEMOGLOBIN 1.8 % (0.0-3.0)
[2016-12-10 06:56] LABS: HEMATOCRIT 41.3 % (35.0-51.0); MEAN CELL VOLUME 86.1 fl (80.0-94.0); MEAN CORPUSCULAR HEMOGLOBIN 27.9 pg (27.0-31.0); MEAN CORPUSCULAR HGB CONC 32.4 g/dL (33.0-37.0); RED CELL DISTRIBUTION WIDTH 16.5 % (11.5-14.5); WHITE BLOOD COUNT 10.4 K/uL (4.8-10.8)
[2016-12-10 07:25] LABS: ALB/GLOB RATIO 1.1 (1.0-2.1); ALKALINE PHOSPHATASE 114 U/L (38-126); ALT/SGPT 58 U/L (21-72); AST/SGOT 37 U/L (17-59); BILIRUBIN,TOTAL 0.6 mg/dl (0.2-1.3); BLOOD UREA NITROGEN 22 mg/dl (9-20); CALCIUM 8.8 mg/dL (8.4-10.2); CARBON DIOXIDE 30 mmol/L (22-30); CHLORIDE 103 mmol/L (98-107); GFR AFRICAN-AMERICAN > 60; GLUCOSE,RANDOM 106 mg/dL (75-110); POTASSIUM 3.6 MMOL/L (3.6-5.0); SODIUM 140 mmol/l (132-148); TOTAL PROTEIN 6.5 G/DL (6.3-8.2)
[2016-12-10] MEDS: Enoxaparin 40 mg Syringe SC SCH (08:49)
--- NOTE | 2016-12-10 10:12 | CP.PCM.PN ---
Subjective - Date & Time of Evaluation Date of Evaluation: 12/10/16 Time of Evaluation: 10:15 - Subjective Subjective: Patient seen and examined bedside. Feeling better. On Bipap machine 04/13 12 FIO2 60 %.Saturating 100 % , afebrile WBC 10 No acute issues overnight Hemdynamically stable BP 119/66 HR 95 ABG 49/98/7.4 Objective - Vital Signs/Intake and Output Vital Signs (last 24 hours): Temp Pulse Resp BP Pulse Ox 98.3 F 95 H 19 119/66 93 L 12/10/16 08:00 12/10/16 08:50 12/10/16 08:00 12/10/16 08:50 12/10/16 08:00 Intake and Output: 12/10/16 12/10/16 06:59 18:59 Intake Total 610 120 Output Total 852 200 Balance -242 -80 - Medications Medications: Current Medications Carvedilol (Coreg) 3.125 mg PO Q12 [facility] Last Admin: 12/10/16 08:48 Dose: 3.125 mg Enoxaparin Sodium (Lovenox) 40 mg SC DAILY [facility] PRN Reason: Protocol Last Admin: 12/10/16 08:49 Dose: 40 mg Furosemide (Lasix) 40 mg IV BID [facility] Last Admin: 12/10/16 08:49 Dose: 40 mg Lisinopril (Zestril) 5 mg PO DAILY [facility] Last Admin: 12/10/16 08:50 Dose: 5 mg Nitroglycerin (Nitro-Bid 2% Oint) 1 inch TOP QID [facility] Last Admin: 12/09/16 21:38 Dose: 1 inch - Labs Labs: 12/10/16 05:30 12/10/16 05:30 PT 13.5 Seconds (9.8-13.1) H 12/08/16 18:17 INR 1.2 (0.9-1.2) 12/08/16 18:17 APTT 28.8 Seconds (25.6-37.1) 12/08/16 18:17 - Constitutional Appears: Non-toxic, No Acute Distress - Head Exam Head Exam: ATRAUMATIC, NORMAL INSPECTION, NORMOCEPHALIC - Eye Exam Eye Exam: EOMI, Normal appearance, PERRL Pupil Exam: NORMAL ACCOMODATION - ENT Exam ENT Exam: Mucous Membranes Moist, Normal Exam - Neck Exam Neck Exam: Full ROM, Normal Inspection - Respiratory Exam Respiratory Exam: Clear to Ausculation Bilateral, Rales, NORMAL BREATHING PATTERN. absent: Accessory Muscle Use, Rhonchi, Wheezes, Respiratory Distress - Cardiovascular Exam Cardiovascular Exam: REGULAR RHYTHM, RRR, +S1, +S2. absent: JVD - GI/Abdominal Exam GI & Abdominal Exam: Soft, Normal Bowel Sounds. absent: Guarding, Tenderness, Rebound - Rectal Exam Rectal Exam: Deferred - Extremities Exam Extremities Exam: Full ROM, Normal Capillary Refill, Normal Inspection. absent : Calf Tenderness, Pedal Edema - Back Exam Back Exam: NORMAL INSPECTION - Neurological Exam Neurological Exam: Alert, Awake, CN II-XII Intact, Oriented x3 - Psychiatric Exam Psychiatric exam: Normal Affect, Normal Mood - Skin Skin Exam: Dry, Intact, Normal Color, Warm Assessment and Plan - Assessment and Plan (Free Text) Assessment: 51 years old male with No significant past medical hx came with one month history f progressive SOB on exertion that now occurring at rest. Associated with left sided chest , back neck pain radiating to the arm , palpitation, mild abdominal pain, edema of the lower extremities and fever, non productive cough, Throat ache, nasal congestion. Patient states that his symptoms have been present for almost 1 month but has progressed CXR showed pulmonary edema and bilateral patchy infiltrates He was placed on BIPAP , started on diuretics . 1.Pulmonary Edema, suspected Bilateral Pneumonia vs interstitial lung disease Continue lasix 40 mg q12 Improving BIPAP at 10/5 rate of 12 and FiO2 60%. Place on 3 L O2 via [place] Vancomycin and Zosyn given in ED Procalcitonin normal Follow up Echo Pulmonary eval with dr. Bunn Resume Rocephin and Zithromax empirically 2. Suspected Acute CHF exacerbation Follow up Echo Cardiology consult appreciated Continue lasix , coreg , lisinopril ril/ IV Lasix 3. Hypertension uncontroleld Continue Lisinopril and Coreg Sodium Nitroprusside iscontinued 4.DVT Prophylaxis Lovenox Code Status: Full
[2016-12-10] MEDS: Nitroglycerin 2% 15 INCH/30 GM TUBE TOP SCH ×4 (11:02→21:11)
[2016-12-10] MEDS: Azithromycin 500 MG in Sodium Chloride 0.9% 250 ML IVPB SCH (11:05)
--- NOTE | 2016-12-10 11:36 | CP.CCUPN ---
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 Borderline oxygenation noted when on nasal cannula with SPO2 91%, but not distressed, but +PLUMMER noted. He denies any CP or SOB at bed rest. No fevers or chills, no cough, dizziness, palpitations. Other vitals: Afebrile, no fever spikes; BP 128/72 HR 82, 97% SPO2. I/Os last 24H= 1500/2552ml ROS: as above, no other pertinent negs or positives on 10 system review. PMFSH: all nursing and historical notes reviewed, no new pertinent data relevant to current problems. No other distress noted: EXAM- HEENT: no icterus, pupils equal and reactive NECK: no visible JVD, supple, carotids equal upstroke bilat/no bruits CHEST: decreased BS bases, no wheezes HEART: regular, distant, S1S2, no murmur audible, no rubs. ABD: soft, no increased distention, no focal tenderness, no HSM. BS hypoactive , EXT: no peripheral/ digital cyanosis, no calf tenderness or palpable cords, distal pulses intact and symmetrical NEURO: no gross focal motor deficits SKIN: no rashes LABS: WBC= 10.4 HGB= 13.4 PLTs= 196K 7.42/49/98 Na= 140 K= 3.6 HCO3= 30 BUN/Cr= 22/0.9 BS= 106 Procalc= 0.05 Trops all negative CXR: marked improvement in bibasilar haziness and interstitial changes (my interp). MAJOR PROBLEMS NOW: 1. CHF / Pulm Edema 2. r/o Cardiomyopathy, diastolic dysfx. PLAN: 1. Lasix IV prn to keep negative fluid balance. 3. Rocephin / Azithro empiric abx therapy started today as per PMD, CT Chest suggests Pneumonia. 4. ECHO results pending from 12/08/16 study. 5. Reprieve off BiPAP support to nasal cannula oxygen as tolerated.
--- NOTE | 2016-12-10 11:46 | RAD ---
HISTORY: r/o pneumonia COMPARISON: 12/09/2016 FINDINGS: LUNGS: Pulmonary vascular congestion improved since the prior radiograph. PLEURA: Minimal residual pleural effusion on the right. Questionable effusion on the left. CARDIOVASCULAR: Stable, enlarged cardiomediastinal silhouette. OSSEOUS STRUCTURES: No significant abnormalities. VISUALIZED UPPER ABDOMEN: Upper abdomen is suboptimally evaluated. OTHER FINDINGS: None. IMPRESSION: Pulmonary vascular congestion improved since prior radiograph. Minimal residual pleural effusion on the right. Possible small pleural effusion on the left.
--- NOTE | 2016-12-10 12:26 | CARD ---
APPROVED REPORT EXAM: Two-dimensional and M-mode echocardiogram with Doppler and color Doppler. Other Information Quality : [employer] : INDICATION Chest Pain 2D DIMENSIONS IVSd1.14 (0.7-1.1cm)LVDd6.29 (3.9-5.9cm) PWd1.09 (0.7-1.1cm)IVSs1.38 (0.8-1.2cm) LVDs4.90 (2.5-4.0cm)FS (%) 22.2 % PWs1.64 (0.8-1.2cm) M-Mode DIMENSIONS Left Atrium (MM)3.82 (2.5-4.0cm)IVSd1.04 (0.7-1.1cm) Aortic Root3.48 (2.2-3.7cm)LVDd7.12 (4.0-5.6cm) Aortic Cusp Exc.2.00 (1.5-2.0cm)PWd1.08 (0.7-1.1cm) IVSs1.40 cmFS (%) 18 % LVDs5.84 (2.0-3.8cm)PWs1.60 cm Aortic Valve AoV Peak Oxolqxiq107.8cm/sAoV VTI29.1cmAO Peak GR.11mmHg LVOT Peak Mzwwymol412.7cm/Dragan Mean GR.7mmHg Mitral Valve MV E Bbkdaljd803.8cm/sMV E Peak Gr.77mmHgMV DECEL [id number] MV A Gwpondiz80.2cm/sMV LQF24awM/A ratio1.6 MVA (PHT)5.16cm2 TDI Lateral E' Peak V7.17cm/sMedial E' Peak V3.75cm/sE/Lateral E'15.5 E/Medial E'29.5 Pulmonary Valve PV Peak Rirgotqq768.6cm/s Tricuspid Valve TR Peak Hmzobzwh731tt/sRAP [id number] Peak Gr.17mmHg [id number] LEFT VENTRICLE The Left Ventricle isglobular and moderately dilated. There is normal left ventricular wall thickness. Left ventricle systolic function is moderately impaired. The Ejection Fraction is 20-25%. There was generalised hypokinesia, particularly pronounced in the inferior wall. Transmitral Doppler flow pattern is Grade II-pseudonormal filling dynamics. RIGHT VENTRICLE The right ventricle is normal size. There is normal right ventricular wall thickness. The right ventricular systolic function is normal. ATRIA The left atrium size is at upper limits of normal. The right atrium size is normal. AORTIC VALVE The aortic valve is normal in structure and function. No aortic regurgitation is present. There is no aortic valvular stenosis. MITRAL VALVE The mitral valve is normal in structure. There is no evidence of mitral valve prolapse. There is no mitral valve stenosis. Mitral regurgitation is severe. TRICUSPID VALVE The tricuspid valve is normal in structure. There is mild tricuspid regurgitation. Right ventricular systolic pressure is estimated at 46 mmHg. There is mild-moderate pulmonary hypertension. PULMONIC VALVE The pulmonary valve is normal in structure and function. There is no pulmonic valvular regurgitation. GREAT VESSELS The aortic root is normal in size. The IVC is normal in size and collapses >50% with inspiration. PERICARDIAL EFFUSION The pericardium appears normal. <Conclusion> The Left Ventricle isglobular and moderately dilated. There is normal left ventricular wall thickness. There was generalised hypokinesia, particularly pronounced in the inferior wall. Left ventricle systolic function is moderately impaired. The Ejection Fraction is 20-25%. Transmitral Doppler flow pattern is Grade II-pseudonormal filling dynamics. Mitral regurgitation is severe. There is mild tricuspid regurgitation. There is mild-moderate pulmonary hypertension.
--- NOTE | 2016-12-10 15:44 | CP.PCM.CON ---
History of Present Illness - History of Present Illness History of Present Illness: Pulmonary Consult. 51 y/o M admitted to [facility] [place] for severe SOB on DOA with no relief, associated to dry cough. Worsening symptoms: PLUMMER, chest pain LSB, L lateral chestwall and posterior ribs with deep breathing. Worsening symptoms: PLUMMER Aggravated factor: SOB when ambulates 2 blocks. As per Pt, SOB began about a month ago but symptoms start getting worse last week, eventually came to ER [facility] and was admitted. He has a Hx of Childhood Bronchial Asthma, Pt remember been admitted for PNA in 2003 while in [place] and was hospitalized. 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 Pt denied: Fever, chills, productive cough, bloody cough, legs pain, CP, LOC, sick contact, recent travel. CT Chest on 12/08/16 shows: Moderately large b/l pleural effusion, opacities suggesting PNA. CXR 12/09/16 showed: Extensive R lung PNA. CXR today 12/10/16 shows: Pulmonary vascular congestion improved. Review of Systems - Constitutional Constitutional: Other (negative) - EENT Eyes: Other (negative) Ears: Other (negative) Nose/Mouth/Throat: Other (negative) - Cardiovascular Cardiovascular: Other (negative) - Respiratory Respiratory: Cough, Dyspnea, Dyspnea on Exertion, Pain on Inspiration, Chest Congestion - Musculoskeletal Musculoskeletal: Other (negative) - Integumentary Integumentary: Other (negative) - Neurological Neurological: Other (negative) - Psychiatric Psychiatric: Other (negative) - Endocrine Endocrine: Other (negative) - Hematologic/Lymphatic Hematologic: Other (negative) Past Patient History - Past Medical History & Family History Past Medical History?: No Pertinent Family History: Unknown. - Past Social History Smoking Status: Former Smoker Chewing Tobacco Use: No Cigar Use: No Alcohol: None Drugs: Denies Home Situation {Lives}: Alone - CARDIAC Hx Cardiac Disorders: No - PULMONARY Hx Respiratory Disorders: No - NEUROLOGICAL Hx Neurological Disorder: No - HEENT Hx HEENT Problems: No - RENAL Hx Chronic Kidney Disease: No - ENDOCRINE/METABOLIC Hx Endocrine Disorders: No - HEMATOLOGICAL/ONCOLOGICAL Hx Blood Disorders: No - INTEGUMENTARY Hx Dermatological Problems: No - MUSCULOSKELETAL/RHEUMATOLOGICAL Hx Musculoskeletal Disorders: No - GASTROINTESTINAL Hx Gastrointestinal Disorders: No - GENITOURINARY/GYNECOLOGICAL Hx Genitourinary Disorders: No - PSYCHIATRIC Hx Psychophysiologic Disorder: No Hx Substance Use: No - SURGICAL HISTORY Hx Surgeries: No - ANESTHESIA Hx Anesthesia: No Meds Home Medications: Home Medication List Medication Instructions Recorded Confirmed Type Aspirin [Aspirin Chewable] 81 mg PO DAILY 12/12/16 Rx Atorvastatin [Lipitor] 10 mg PO DAILY #30 tab 12/12/16 Rx Carvedilol [Coreg] 3.125 mg PO Q12 #60 tab 12/12/16 Rx Furosemide [Lasix] 40 mg PO DAILY #30 tablet 12/12/16 Rx Lisinopril [Zestril] 5 mg PO DAILY #30 tab 12/12/16 Rx Spironolactone [Aldactone] 12.5 mg PO DAILY #30 tablet 12/12/16 Rx Allergies/Adverse Reactions: Allergies Allergy/AdvReac Type Severity Reaction Status Date / Time No Known Allergies Allergy Verified 12/08/16 17:59 - Medications Medications: Current Medications Carvedilol (Coreg) 3.125 mg PO Q12 [facility] Last Admin: 12/10/16 08:48 Dose: 3.125 mg Enoxaparin Sodium (Lovenox) 40 mg SC DAILY [facility] PRN Reason: Protocol Last Admin: 12/10/16 08:49 Dose: 40 mg Furosemide (Lasix) 40 mg IV BID [facility] Last Admin: 12/10/16 08:49 Dose: 40 mg Ceftriaxone Sodium 1 gm/ (Sodium Chloride) 100 mls @ 100 mls/hr IVPB DAILY [facility] Last Admin: 12/10/16 11:04 Dose: 100 mls/hr Azithromycin 500 mg/ Sodium (Chloride) 250 mls @ 250 mls/hr IVPB DAILY [facility] Last Admin: 12/10/16 11:05 Dose: 250 mls/hr Lisinopril (Zestril) 5 mg PO DAILY [facility] Last Admin: 12/10/16 08:50 Dose: 5 mg Nitroglycerin (Nitro-Bid 2% Oint) 1 inch TOP QID [facility] Last Admin: 12/10/16 13:47 Dose: 1 inch Physical Exam - Constitutional Appears: No Acute Distress - Head Exam Head Exam: NORMAL INSPECTION - Eye Exam Eye Exam: PERRL - ENT Exam ENT Exam: Normal Oropharynx - Neck Exam Neck exam: Positive for: Normal Inspection - Respiratory Exam Respiratory Exam: Decreased Breath Sounds (at bases, ), Rhonchi (expiratory at bases) Additional comments: Tenderness: LSB, Left lateral chest wall and posterior ribs with deep breathing. - Cardiovascular Exam Cardiovascular Exam: REGULAR RHYTHM - GI/Abdominal Exam GI & Abdominal Exam: Normal Bowel Sounds, Soft - Extremities Exam Extremities exam: Positive for: full ROM - Back Exam Back exam: NORMAL INSPECTION - Neurological Exam Neurological exam: Alert, Oriented x3 Additional comments: No focal motor sensory deficit. - Psychiatric Exam Psychiatric exam: Normal Mood - Skin Skin Exam: Warm Results - Vital Signs Recent Vital Signs: Last Vital Signs Temp 98.6 F 12/10/16 12:00 Pulse 85 12/10/16 13:49 Resp 18 12/10/16 13:49 BP 115/62 12/10/16 13:49 Pulse Ox 98 12/10/16 13:49 reviewed Eric - Labs Result Diagrams: 12/11/16 05:30 12/11/16 05:30 Labs: Laboratory Results - last 24 hr 12/09/16 12/10/16 12/10/16 04:40 04:35 05:30 WBC 10.4 RBC 4.80 Hgb 13.4 Hct 41.3 MCV 86.1 MCH 27.9 MCHC 32.4 L RDW 16.5 H Plt Count 196 pCO2 49 H pO2 98 HCO3 29.6 H ABG pH 7.42 ABG Total CO2 33.3 H ABG O2 Saturation 98.9 H ABG O2 Content 18.5 ABG Base Excess 6.1 H ABG Hemoglobin 13.8 ABG Carboxyhemoglobin 2.0 H POC ABG HHb (Measured) 1.1 ABG Methemoglobin 1.8 ABG O2 Capacity 18.7 Noe Test Yes A-a O2 Difference 269.0 Hgb O2 Saturation 95.1 Vent Mode Bipap Mechanical Rate 12 FiO2 60.0 Inspiratory BiPAP 10 Expiratory BiPAP 5 Sodium Potassium Chloride Carbon Dioxide Anion Gap BUN Creatinine Est GFR ( Amer) Est GFR (Non-Af Amer) Random Glucose Calcium Total Bilirubin AST ALT Alkaline Phosphatase Total Protein Albumin Globulin Albumin/Globulin Ratio Procalcitonin <= 0.05 L HIV-1 Ab Rapid Screen 12/10/16 12/10/16 05:30 12:10 WBC RBC Hgb Hct MCV MCH MCHC RDW Plt Count pCO2 pO2 HCO3 ABG pH ABG Total CO2 ABG O2 Saturation ABG O2 Content ABG Base Excess ABG Hemoglobin ABG Carboxyhemoglobin POC ABG HHb (Measured) ABG Methemoglobin ABG O2 Capacity Noe Test A-a O2 Difference Hgb O2 Saturation Vent Mode Mechanical Rate FiO2 Inspiratory BiPAP Expiratory BiPAP Sodium 140 Potassium 3.6 Chloride 103 Carbon Dioxide 30 Anion Gap 10 BUN 22 H Creatinine 0.9 Est GFR ( Amer) > 60 Est GFR (Non-Af Amer) > 60 Random Glucose 106 Calcium 8.8 Total Bilirubin 0.6 AST 37 ALT 58 Alkaline Phosphatase 114 Total Protein 6.5 Albumin 3.5 Globulin 3.0 Albumin/Globulin Ratio 1.1 Procalcitonin HIV-1 Ab Rapid Screen Non reactive reviewed J.P. - EKG Data EKG comments: reviewed J.P. - Imaging and Cardiology Chest x-ray Status: Report reviewed by me (Pasquale.) CT scan - chest Status: Report reviewed by me ([email or web address]) Assessment & Plan (1) Respiratory failure Status: Acute Priority: High Comment: Improved. (2) Pneumonia Status: Ruled-out Priority: High (3) CHF (congestive heart failure) Status: Acute Priority: Medium - Assessment and Plan (Free Text) Plan: Continue Zithromax, Rocephin and rest of Tx. F/U CT Chest in AM. ICU time: 60 minutes - Date & Time Date: 12/10/16 Time: 11:20
[2016-12-11 07:08] LABS: HEMATOCRIT 43.3 % (35.0-51.0); MEAN CELL VOLUME 86.6 fl (80.0-94.0); MEAN CORPUSCULAR HEMOGLOBIN 27.9 pg (27.0-31.0); MEAN CORPUSCULAR HGB CONC 32.3 g/dL (33.0-37.0); RED CELL DISTRIBUTION WIDTH 16.4 % (11.5-14.5); WHITE BLOOD COUNT 9.4 K/uL (4.8-10.8)
[2016-12-11 07:18] LABS: BLOOD UREA NITROGEN 19 mg/dl (9-20); CALCIUM 8.8 mg/dL (8.4-10.2); CARBON DIOXIDE 32 mmol/L (22-30); CHLORIDE 102 mmol/L (98-107); GFR AFRICAN-AMERICAN > 60; GLUCOSE,RANDOM 106 mg/dL (75-110); POTASSIUM 3.9 MMOL/L (3.6-5.0); SODIUM 141 mmol/l (132-148)
--- NOTE | 2016-12-11 07:29 | CP.PCM.PN ---
Subjective - Date & Time of Evaluation Date of Evaluation: 12/11/16 Time of Evaluation: 08:45 - Subjective Subjective: Patient seen and examined bedside. Feeling better. Still complained of some left sided chest pain. Denies any SOB No acute issues overnight BP 105/65 HR 71 o2Sat [id number] 5 on 2 L O2 via Nc Echo showedd dilated LV with generalized hypokinesia mostly inferior wall , EF 20-25 % , severe MR ,mild TR mild to moderate pulmonary hypertension Objective - Vital Signs/Intake and Output Vital Signs (last 24 hours): Temp Pulse Resp BP Pulse Ox 98.5 F 71 31 H 105/65 93 L 12/11/16 04:00 12/11/16 04:00 12/11/16 04:00 12/11/16 04:00 12/11/16 04:00 Intake and Output: 12/11/16 12/11/16 06:59 18:59 Output Total 500 Balance -500 - Medications Medications: Current Medications Carvedilol (Coreg) 3.125 mg PO Q12 [facility] Last Admin: 12/10/16 21:09 Dose: Not Given Enoxaparin Sodium (Lovenox) 40 mg SC DAILY [facility] PRN Reason: Protocol Last Admin: 12/10/16 08:49 Dose: 40 mg Furosemide (Lasix) 40 mg IV BID [facility] Last Admin: 12/10/16 16:45 Dose: 40 mg Ceftriaxone Sodium 1 gm/ (Sodium Chloride) 100 mls @ 100 mls/hr IVPB DAILY [facility] Last Admin: 12/10/16 11:04 Dose: 100 mls/hr Azithromycin 500 mg/ Sodium (Chloride) 250 mls @ 250 mls/hr IVPB DAILY [facility] Last Admin: 12/10/16 11:05 Dose: 250 mls/hr Lisinopril (Zestril) 5 mg PO DAILY [facility] Last Admin: 12/10/16 08:50 Dose: 5 mg Nitroglycerin (Nitro-Bid 2% Oint) 1 inch TOP QID [facility] Last Admin: 12/10/16 21:11 Dose: 1 inch - Labs Labs: 12/11/16 05:30 12/11/16 05:30 PT 13.5 Seconds (9.8-13.1) H 12/08/16 18:17 INR 1.2 (0.9-1.2) 12/08/16 18:17 APTT 28.8 Seconds (25.6-37.1) 12/08/16 18:17 - Constitutional Appears: Non-toxic, No Acute Distress - Head Exam Head Exam: ATRAUMATIC, NORMAL INSPECTION, NORMOCEPHALIC - Eye Exam Eye Exam: EOMI, Normal appearance, PERRL Pupil Exam: NORMAL ACCOMODATION - ENT Exam ENT Exam: Mucous Membranes Moist, Normal Exam - Neck Exam Neck Exam: Full ROM, Normal Inspection - Respiratory Exam Respiratory Exam: Clear to Ausculation Bilateral, NORMAL BREATHING PATTERN. absent: Rales, Rhonchi, Wheezes, Respiratory Distress - Cardiovascular Exam Cardiovascular Exam: REGULAR RHYTHM, RRR, +S1, +S2. absent: JVD - GI/Abdominal Exam GI & Abdominal Exam: Soft, Normal Bowel Sounds. absent: Distended, Guarding, Tenderness, Rebound - Rectal Exam Rectal Exam: Deferred - Extremities Exam Extremities Exam: Full ROM, Normal Capillary Refill, Normal Inspection. absent : Calf Tenderness, Pedal Edema - Back Exam Back Exam: NORMAL INSPECTION - Neurological Exam Neurological Exam: Alert, Awake, CN II-XII Intact, Oriented x3 - Psychiatric Exam Psychiatric exam: Normal Affect, Normal Mood - Skin Skin Exam: Dry, Intact, Normal Color, Warm Assessment and Plan - Assessment and Plan (Free Text) Assessment: 51 years old male with No significant past medical hx came with one month history of progressive SOB on exertion that now occurring at rest. Associated with left sided chest , back neck pain radiating to the arm , palpitation, mild abdominal pain, edema of the lower extremities and fever, non productive cough, Throat ache, nasal congestion. Patient states that his symptoms have been present for almost 1 month but has progressed CXR showed pulmonary edema and bilateral patchy infiltrates He was placed on BIPAP , started on diuretics with improvement. Echo official report showed impaired LV function with EF 20-25 5 , hypokinesis and severe MR 1.Pulmonary Edema most likely secondary to acute CHF exacerbation improving Echo showedd dilated LV with generalized hypokinesia mostly inferior wall , EF 20-25 % , severe MR ,mild TR mild to moderate pulmonary hypertension Continue lasix 40 mg q12 was on BIPAP and at present saturating well on 3 L O2 via Nc Continue coreg, lisinopril, lasix cardiology consulted unlikely pneumonia since patient is afebrile, has normal WBC and procalcitonin is normal on Rocephin and Zithromax empirically Pulmonary eval with Dr. Bunn appreciated will repeat CT chest without contrast 3. Hypertension better controlled Continue Lisinopril and Coreg 4.DVT Prophylaxis Lovenox Code Status: Full
[2016-12-11] MEDS: Enoxaparin 40 mg Syringe SC SCH (08:41)
[2016-12-11] MEDS: Nitroglycerin 2% 15 INCH/30 GM TUBE TOP SCH ×4 (08:41→21:22)
[2016-12-11] MEDS: Azithromycin 500 MG in Sodium Chloride 0.9% 250 ML IVPB SCH (10:00)
--- NOTE | 2016-12-11 15:34 | CP.PCM.PN ---
Subjective - Date & Time of Evaluation Date of Evaluation: 12/11/16 Time of Evaluation: 12:30 - Subjective Subjective: F/U Respiratory Failure. Pt c/o of chest pain LSB, Left lateral chest wall and posterior with deep breathing Objective - Vital Signs/Intake and Output Vital Signs (last 24 hours): Temp Pulse Resp BP Pulse Ox 98.1 F 76 18 100/53 L 95 12/11/16 12:00 12/11/16 14:00 12/11/16 14:00 12/11/16 14:00 12/11/16 14:00 Intake and Output: 12/11/16 12/11/16 06:59 18:59 Intake Total 1150 Output Total 500 700 Balance -500 450 - Medications Medications: Current Medications Aspirin (Aspirin Chewable) 81 mg PO DAILY [facility] Last Admin: 12/11/16 12:36 Dose: 81 mg Atorvastatin Calcium (Lipitor) 10 mg PO DAILY [facility] Last Admin: 12/11/16 12:36 Dose: 10 mg Carvedilol (Coreg) 3.125 mg PO Q12 [facility] Last Admin: 12/11/16 08:40 Dose: 3.125 mg Enoxaparin Sodium (Lovenox) 40 mg SC DAILY [facility] PRN Reason: Protocol Last Admin: 12/11/16 08:41 Dose: 40 mg Furosemide (Lasix) 40 mg IV BID [facility] Last Admin: 12/11/16 08:40 Dose: 40 mg Lisinopril (Zestril) 5 mg PO DAILY [facility] Last Admin: 12/11/16 08:42 Dose: 5 mg Nitroglycerin (Nitro-Bid 2% Oint) 1 inch TOP QID [facility] Last Admin: 12/11/16 12:37 Dose: Not Given - Labs Labs: 12/11/16 05:30 12/11/16 05:30 PT 13.5 Seconds (9.8-13.1) H 12/08/16 18:17 INR 1.2 (0.9-1.2) 12/08/16 18:17 APTT 28.8 Seconds (25.6-37.1) 12/08/16 18:17 - Constitutional Appears: No Acute Distress - Head Exam Head Exam: NORMAL INSPECTION - Eye Exam Eye Exam: PERRL - ENT Exam ENT Exam: Normal Oropharynx - Neck Exam Neck Exam: Normal Inspection - Respiratory Exam Respiratory Exam: Decreased Breath Sounds (at bases), Rhonchi (few scattered) Additional comments: Minimal tenderness LSB, L Lateral chest wall and posterior with deep breathing. - Cardiovascular Exam Cardiovascular Exam: REGULAR RHYTHM - GI/Abdominal Exam GI & Abdominal Exam: Soft, Normal Bowel Sounds - Extremities Exam Extremities Exam: Full ROM - Back Exam Back Exam: NORMAL INSPECTION - Neurological Exam Neurological Exam: Alert, Oriented x3 Additional comments: No focal motor sensory deficit. - Psychiatric Exam Psychiatric exam: Normal Mood - Skin Skin Exam: Warm Assessment and Plan (1) Respiratory failure Assessment & Plan: Improved Status: Acute (2) Pneumonia Assessment & Plan: Improved. Status: Ruled-out (3) CHF (congestive heart failure) Status: Acute - Assessment and Plan (Free Text) Plan: CT Chest showed minimal residual airspace opacities both lungs. Continue Zithromax, Rocephin and rest of Tx. ICU time: 35 minutes
--- NOTE | 2016-12-11 15:39 | CT ---
PROCEDURE: CT Chest without contrast HISTORY: r/o pneumonia COMPARISON: 12/08/2016 TECHNIQUE: Contiguous axial images were obtained through the chest without intravenous contrast enhancement. Sagittal and coronal reconstructions were performed. Radiation dose (DLP): 699.29 mGy-cm. This CT exam was performed using one or more of the following dose reduction techniques: Automated exposure control, adjustment of the mA and/or kV according to patient size, and/or use of iterative reconstruction technique. FINDINGS: LUNGS: Marked reduction in the previously seen multifocal airspace opacities throughout both lungs. Minimal residual airspace opacities seen throughout both lungs. 3-4 millimeter nodules in the right upper lobe. These are best seen on series 3, image 47 and 49. Extensive breathing artifact on the lung bases limiting evaluation for small lung nodules. Mild atelectatic changes. MEDIASTINUM: Unremarkable thoracic aorta. No aneurysm. Enlarged heart. Main pulmonary artery unremarkable. No vascular congestion. Scattered mediastinal lymphadenopathy. Hilar lymphadenopathy suboptimally seen due to lack of intravenous contrast. PLEURA: Interval resolution of pleural effusions. BONES: No fracture. No destructive lesion. UPPER ABDOMEN: Grossly unremarkable. OTHER FINDINGS: Hypodensities in the thyroid gland noted. IMPRESSION: Marked reduction in the previously seen multifocal airspace opacities throughout both lungs with minimal residual opacity seen. Interval resolution of pleural effusions. Millimeter pulmonary nodules in the right upper lobe. Repeat chest CT should be obtained in 6-12 months. Hypodensities in the thyroid gland seen. Dedicated ultrasound recommended.
[2016-12-12 08:16] VITALS: O2SAT 98
--- NOTE | 2016-12-12 08:27 | CARD ---
APPROVED REPORT EKG Measurement Heart [id number] [place] 152P39 [id number] <Conclusion> Poor data quality, interpretation may be adversely affected Normal sinus rhythm Possible Left atrial enlargement Left ventricular hypertrophy with repolarization abnormality Abnormal ECG
[2016-12-12] MEDS: Enoxaparin 40 mg Syringe SC SCH (09:42)
[2016-12-12] MEDS: Nitroglycerin 2% 15 INCH/30 GM TUBE TOP SCH ×2 (10:25→14:47)
--- NOTE | 2016-12-12 10:53 | CP.PCM.DIS ---
Provider - Provider Date of Admission: 12/08/16 19:27 Attending physician: Cruz Gan Consults: Pulm: Dr Bunn Cardio: Dr Lindquist Time Spent in preparation of Discharge (in minutes): 40 Diagnosis - Discharge Diagnosis (1) Acute respiratory failure with hypoxia Status: Acute (2) Pulmonary edema with congestive heart failure with reduced left ventricular function Status: Acute (3) Acute combined systolic and diastolic congestive heart failure Status: Acute (4) HTN (hypertension) Status: Acute (5) Pneumonia Status: Ruled-out Priority: High (6) DVT prophylaxis Status: Acute Hospital Course - Lab Results Lab Results: Micro Results 12/09/16 08:51 Naris MRSA Culture (Admit) - Final MRSA NOT DETECTED 12/08/16 19:30 Urine Urine Culture - Final No Growth (<1,000 CFU/ML) Most Recent Lab Values WBC 9.4 K/uL (4.8-10.8) 12/11/16 05:30 RBC 5.01 Mil/uL (4.40-5.90) 12/11/16 05:30 Hgb 14.0 g/dL (12.0-18.0) 12/11/16 05:30 Hct 43.3 % (35.0-51.0) 12/11/16 05:30 MCV 86.6 fl (80.0-94.0) 12/11/16 05:30 MCH 27.9 pg (27.0-31.0) 12/11/16 05:30 MCHC 32.3 g/dL (33.0-37.0) L 12/11/16 05:30 RDW 16.4 % (11.5-14.5) H 12/11/16 05:30 Plt Count 209 K/uL (130-400) 12/11/16 05:30 MPV 10.0 fl (7.2-11.7) 12/08/16 18:17 Neut % (Auto) 75.6 % (50.0-75.0) H 12/08/16 18:17 Lymph % (Auto) 16.5 % (20.0-40.0) L 12/08/16 18:17 [place] % (Auto) 5.7 % (0.0-10.0) 12/08/16 18:17 Eos % (Auto) 1.9 % (0.0-4.0) 12/08/16 18:17 Baso % (Auto) 0.3 % (0.0-2.0) 12/08/16 18:17 Neut # 8.0 K/uL (1.8-7.0) H 12/08/16 18:17 Lymph # 1.7 K/uL (1.0-4.3) 12/08/16 18:17 [place] # 0.6 K/uL (0.0-0.8) 12/08/16 18:17 Eos # 0.2 K/uL (0.0-0.7) 12/08/16 18:17 Baso # 0.0 K/uL (0.0-0.2) 12/08/16 18:17 PT 13.5 Seconds (9.8-13.1) H 12/08/16 18:17 INR 1.2 (0.9-1.2) 12/08/16 18:17 APTT 28.8 Seconds (25.6-37.1) 12/08/16 18:17 pCO2 49 mm/Hg (35-45) H 12/10/16 04:35 pO2 98 mm/Hg (80-100) 12/10/16 04:35 HCO3 29.6 mmol/L (21-28) H 12/10/16 04:35 ABG pH 7.42 (7.35-7.45) 12/10/16 04:35 ABG Total CO2 33.3 mmol/L (22-28) H 12/10/16 04:35 ABG O2 Saturation 98.9 % (95-98) H 12/10/16 04:35 ABG O2 Content 18.5 ML/dL (15-23) 12/10/16 04:35 ABG Base Excess 6.1 mmol/L (-2.0-3.0) H 12/10/16 04:35 ABG Hemoglobin 13.8 g/dL (11.7-17.4) 12/10/16 04:35 ABG Carboxyhemoglobin 2.0 % (0.5-1.5) H 12/10/16 04:35 POC ABG HHb (Measured) 1.1 % (0.0-5.0) 12/10/16 04:35 ABG Methemoglobin 1.8 % (0.0-3.0) 12/10/16 04:35 ABG O2 Capacity 18.7 mL/dL (16-24) 12/10/16 04:35 Noe Test Yes 12/10/16 04:35 ABG Potassium 4.2 mmol/L (3.6-5.2) 12/08/16 18:10 VBG pH 7.32 (7.32-7.43) 12/08/16 21:58 VBG pCO2 58 mmHg (40-60) 12/08/16 21:58 VBG HCO3 25.5 mmol/L 12/08/16 21:58 VBG Total CO2 31.7 mmol/L (22-28) H 12/08/16 21:58 VBG O2 Sat (Calc) 47.8 % (40-65) 12/08/16 21:58 VBG Base Excess 2.4 mmol/L (0.0-2.0) H 12/08/16 21:58 VBG Potassium 4.0 mmol/L (3.6-5.2) 12/08/16 21:58 A-a O2 Difference 269.0 mm/Hg 12/10/16 04:35 Hgb O2 Saturation 95.1 % (95.0-98.0) 12/10/16 04:35 Sodium 141.0 mmol/L (132-148) 12/08/16 21:58 Chloride 105.0 mmol/L (98-107) 12/08/16 21:58 Glucose 141 mg/dL (75-110) H 12/08/16 21:58 Lactate 2.2 mmol/L (0.7-2.1) H 12/08/16 21:58 Vent Mode Bipap 12/10/16 04:35 Mechanical Rate 12 12/10/16 04:35 FiO2 60.0 % 12/10/16 04:35 Inspiratory BiPAP 10 12/10/16 04:35 Expiratory BiPAP 5 12/10/16 04:35 Crit Value Called To Fernando watson 12/08/16 21:58 Crit Value Called By 15 12/08/16 21:58 Crit Value Read Back Y 12/08/16 21:58 Blood Gas Notified Time 220112/08/16 21:58 Sodium 141 mmol/l (132-148) 12/11/16 05:30 Potassium 3.9 MMOL/L (3.6-5.0) 12/11/16 05:30 Chloride 102 mmol/L (98-107) 12/11/16 05:30 Carbon Dioxide 32 mmol/L (22-30) H 12/11/16 05:30 Anion Gap 11 (10-20) 12/11/16 05:30 BUN 19 mg/dl (9-20) 12/11/16 05:30 Creatinine 1.1 mg/dL (0.8-1.5) 12/11/16 05:30 Est GFR ( Amer) > 60 12/11/16 05:30 Est GFR (Non-Af Amer) > 60 12/11/16 05:30 Random Glucose 106 mg/dL (75-110) 12/11/16 05:30 Calcium 8.8 mg/dL (8.4-10.2) 12/11/16 05:30 Phosphorus 3.9 mg/dl (2.5-4.5) 12/08/16 18:17 Magnesium 2.0 MG/DL (1.6-2.3) 12/08/16 18:17 Total Bilirubin 0.6 mg/dl (0.2-1.3) 12/10/16 05:30 AST 37 U/L (17-59) 12/10/16 05:30 ALT 58 U/L (21-72) 12/10/16 05:30 Alkaline Phosphatase 114 U/L (38-126) 12/10/16 05:30 Troponin I 0.0210 ng/mL (0.00-0.120) 12/11/16 11:45 NT-Pro-B Natriuret Pep 4780 pg/ml (0-900) H 12/08/16 18:17 Total Protein 6.5 G/DL (6.3-8.2) 12/10/16 05:30 Albumin 3.5 g/dL (3.5-5.0) 12/10/16 05:30 Globulin 3.0 gm/dL (2.2-3.9) 12/10/16 05:30 Albumin/Globulin Ratio 1.1 (1.0-2.1) 12/10/16 05:30 Triglycerides 56 mg/DL (0-149) 12/09/16 04:40 Cholesterol 133 mg/dL (0-199) 12/09/16 04:40 LDL Cholesterol Direct 83 mg/dL (0-129) 12/09/16 04:40 HDL Cholesterol 36 MG/DL (30-70) 12/09/16 04:40 Procalcitonin <= 0.05 NG/ML (0.19-0.49) L 12/09/16 04:40 TSH 3rd Generation 3.33 mIU/ML (0.46-4.68) 12/08/16 19:38 Arterial Blood Potassium 4.2 mmol/L (3.6-5.2) 12/08/16 18:10 Venous Blood Potassium 4.0 mmol/L (3.6-5.2) 12/08/16 21:58 Urine Color Yellow (YELLOW) 12/08/16 19:30 Urine Clarity Clear (Clear) 12/08/16 19:30 Urine pH 6.0 (5.0-8.0) 12/08/16 19:30 Ur Specific [place] 1.049 (1.003-1.030) H 12/08/16 19:30 Urine Protein 100 mg/dL (NEGATIVE) 12/08/16 19:30 Urine Glucose (UA) Neg mg/dL (Normal) 12/08/16 19:30 Urine Ketones Negative mg/dL (NEGATIVE) 12/08/16 19:30 Urine Blood Negative (NEGATIVE) 12/08/16 19:30 Urine Nitrate Negative (NEGATIVE) 12/08/16 19:30 Urine Bilirubin Negative (NEGATIVE) 12/08/16 19:30 Urine Urobilinogen 0.2-1.0 mg/dL (0.2-1.0) 12/08/16 19:30 Ur Leukocyte Esterase Neg [place]/uL (Negative) 12/08/16 19:30 Urine RBC (Auto) 3 /hpf (0-3) 12/08/16 19:30 Urine Microscopic WBC 2 /hpf (0-5) 12/08/16 19:30 HIV-1 Ab Rapid Screen Non reactive (NON REAC) 12/10/16 12:10 - Hospital Course Hospital Course: 51 years old male with no significant past medical hx came with one month history of progressive SOB on exertion that now occurring at rest. Associated with left sided chest , back neck pain radiating to the arm , palpitation, mild abdominal pain, edema of the lower extremities and fever, non productive cough, Throat ache, nasal congestion. Patient states that his symptoms have been present for almost 1 month but has progressed CXR showed pulmonary edema and bilateral patchy infiltrates He was placed on BIPAP , started on diuretics with improvement. Echo official report showed impaired LV function with EF 20-25 5 , hypokinesis and severe MR 1. Acute Respiratory Failure , hypoxic sec to Pulmonary Edema, Pneumonia ruled out initially placed on Bipap - his sxs improved with diuresis Saturation now normal on Room Air 2.Pulmonary Edema most likely secondary to acute CHF exacerbation, systolic and diastolic , EF 20-25% improving Echo showedd dilated LV with generalized hypokinesia mostly inferior wall , EF 20-25 % , severe MR ,mild TR mild to moderate pulmonary hypertension Pt was started on IV lasix 40 mg q12 - will change to PO was on BIPAP and at present saturating well on Room Air Continue coreg, lisinopril, lasix , add Aldactone cardiology consulted unlikely pneumonia since patient is afebrile, has normal WBC and procalcitonin is normal initially started on Rocephin and Zithromax empirically Pulmonary eval with Dr. Bunn appreciated repeat CT chest without contrast shows improvement of infiltrates and effusion 3. Hypertension better controlled Continue Lisinopril and Coreg, Lasix and Aldactone 4. Chest Pressure , ACS ruled out, likely due to Pulm Edema needs further Cardiac work up as outpt Troponin x 3 negative 4.DVT Prophylaxis Lovenox Discharge Exam - Head Exam Head Exam: NORMAL INSPECTION Discharge Plan - Discharge Medications Prescriptions: Atorvastatin [Lipitor] 10 mg PO DAILY #30 tab Carvedilol [Coreg] 3.125 mg PO Q12 #60 tab Furosemide [Lasix] 40 mg PO DAILY #30 tablet Lisinopril [Zestril] 5 mg PO DAILY #30 tab Spironolactone [Aldactone] 12.5 mg PO DAILY #30 tablet - Follow Up Plan Condition: CRITICAL Disposition: HOME/ ROUTINE Instructions: Heart Failure (DC), Heart Failure (GEN), Pacemaker (DC), Pacemaker (GEN), Pulmonary Edema (DC), Pulmonary Edema (GEN), Ascites (DC), Ascites (GEN) Additional Instructions: ff up [facility] Clinic in 1 wk Cardio clinic ff up in 2 wks need Thyroid Sonogram as outpt needs rpt CT scan in 6 mos Fluid restriction, low salt diet Referrals: [facility] [Outside] Clinical Quality Measures - CQM - Heart Failure Ejection Fraction: Less Than 40 % Left Ventricular Function to be assessed after discharge: Yes BC Inhibitor Prescribed: Yes Beta-Diane Prescribed: Carvedilol Angiotensin II Receptor Diane Prescribed: No Contraindication/Reason for not providing: pt on BC, BP low normal AnticoagulationTherapy for Atrial Fibrillation/Atrialflutter: No Contraindication/Reason for not providing: not indicated Aldosterone Antagonist Prescribed: Yes Hydralazine Nitrate Prescribed: No Contraindication/Reason for not providing: low BP Implantable Cardioverter Defibrillator Therapy: No Contraindication/Reason for not providing: Pt will ff up with Cardio as outpt Cardiac Resynchronization Therapy Prescribed: No Contraindication/Reason for not providing: not indicated Will be discharged to: Home Follow Up Date (must be within 7 days from discharge): 12/16/16 Follow Up Time: 09:00 - Date & Time of Discharge Summary Date of Discharge Summary: 12/12/16 Time of Discharge Summary: 16:32
[2016-12-12 12:15] VITALS: PULSE 78; RESP 18; TEMP 98.4
--- NOTE | 2016-12-12 13:16 | CP.PCM.PN ---
Subjective - Date & Time of Evaluation Date of Evaluation: 12/12/16 Time of Evaluation: 11:10 - Subjective Subjective: F/U Respiratory failure. Pt breathing better, no c/o, no SOB today. Objective - Vital Signs/Intake and Output Vital Signs (last 24 hours): Temp Pulse Resp BP Pulse Ox 98.4 F 78 18 110/72 98 12/12/16 12:00 12/12/16 12:00 12/12/16 12:00 12/12/16 12:00 12/12/16 12:00 Intake and Output: 12/12/16 12/12/16 06:59 18:59 Intake Total 200 Output Total 400 Balance -200 - Medications Medications: Current Medications Aspirin (Aspirin Chewable) 81 mg PO DAILY [facility] Last Admin: 12/12/16 09:46 Dose: 81 mg Atorvastatin Calcium (Lipitor) 10 mg PO DAILY [facility] Last Admin: 12/12/16 09:41 Dose: 10 mg Carvedilol (Coreg) 3.125 mg PO Q12 [facility] [place] Last Admin: 12/12/16 09:41 Dose: Not Given Enoxaparin Sodium (Lovenox) 40 mg SC DAILY [facility] PRN Reason: Protocol Last Admin: 12/12/16 09:42 Dose: 40 mg Furosemide (Lasix) 40 mg IV BID [facility] [place] Last Admin: 12/12/16 09:43 Dose: 40 mg Lisinopril (Zestril) 5 mg PO DAILY [facility] [place] Last Admin: 12/12/16 09:42 Dose: Not Given Nitroglycerin (Nitro-Bid 2% Oint) 1 inch TOP QID [facility] [place] Last Admin: 12/12/16 10:25 Dose: 1 inch - Labs Labs: 12/11/16 05:30 12/11/16 05:30 PT 13.5 Seconds (9.8-13.1) H 12/08/16 18:17 INR 1.2 (0.9-1.2) 12/08/16 18:17 APTT 28.8 Seconds (25.6-37.1) 12/08/16 18:17 - Constitutional Appears: No Acute Distress - Head Exam Head Exam: NORMAL INSPECTION - Eye Exam Eye Exam: PERRL - ENT Exam ENT Exam: Normal Oropharynx - Neck Exam Neck Exam: Normal Inspection - Respiratory Exam Respiratory Exam: NORMAL BREATHING PATTERN - Cardiovascular Exam Cardiovascular Exam: REGULAR RHYTHM - GI/Abdominal Exam GI & Abdominal Exam: Soft, Normal Bowel Sounds - Extremities Exam Extremities Exam: Normal Inspection - Back Exam Back Exam: NORMAL INSPECTION - Neurological Exam Neurological Exam: Alert, Oriented x3 Additional comments: No focal motor sensory deficit. - Psychiatric Exam Psychiatric exam: Normal Mood - Skin Skin Exam: Warm Assessment and Plan (1) Respiratory failure Status: Resolved (2) Pneumonia Status: Ruled-out (3) CHF (congestive heart failure) Status: Acute - Assessment and Plan (Free Text) Plan: Pt Pulmonary clear for discharge.
[2016-12-12 15:05] VITALS: BP 110/70
--- NOTE | 2016-12-13 16:47 | CARD ---
APPROVED REPORT EKG Measurement Heart [id number] [place] 160P26 [id number] <Conclusion> Normal sinus rhythm Possible Left atrial enlargement Left ventricular hypertrophy Nonspecific T wave abnormality Abnormal ECG
== END 2016-12-12 15:00 | disposition home or self-care (01) | DRG 189 ==
LOC: H.ER 17:59 → H.ERHOLD 19:27 → H.ICU/CCU 12-09 00:22 → H.TEL 12-11 16:15
PROVIDERS: ADMIT Internal Medicine; ATTEND Internal Medicine
PROC: 5A09457 Assistance with Respiratory Ventilation, 24-96 Consecutive Hours, Continuous Positive Airway Pressure (ICD-10-PCS; principal; 2016-12-08)
DX: J96.01 Acute respiratory failure with hypoxia (principal); I50.43 Acute on chronic combined systolic (congestive) and diastolic (congestive) heart failure; I11.0 Hypertensive heart disease with heart failure; I27.2 Other secondary pulmonary hypertension; Z87.891 Personal history of nicotine dependence

== ENCOUNTER 2017-12-02 13:08 | Emergency (ER) | payer SELFPAY ==
[2017-12-02 13:09] VITALS: BMI 32.4
[2017-12-02 13:40] VITALS: BP 109/69; PULSE 77; RESP 18; TEMP 98.1; O2SAT 100
[2017-12-02] MEDS ORDERED: Lidocaine 2% Inj (20ml) SC ONE (13:50)
[2017-12-02] MEDS ORDERED: Tdap Vaccine 0.5 ml Vial (10-64 yrs) IM ONE ×2 (13:50→14:43)
[2017-12-02] MEDS ORDERED: Lidocaine 1% Inj (20ml) ONE (13:52)
--- NOTE | 2017-12-02 13:55 | ED PDOC ---
Upper Extremity Pain/Injury Time Seen by Provider: 12/02/17 13:46 Chief Complaint (Nursing): Abnormal Skin Integrity Chief Complaint (Provider): Left index finger laceration History Per: Patient Additional Complaint(s): Lopez Haynes is a 52 year old right hand dominant male, with a past medical history of hypertension, who presents with left index finger laceration s/p chopping vegetables with knife and cutting digit by accident. He applied pressure dressing and came to ED. He denies any numbness to affected digit but does have mild pain. Patient is not sure of last tetanus booster. PMD: [facility] Past Medical History Reviewed: Historical Data, Nursing Documentation, Vital Signs Vital Signs: Last Vital Signs Temp 98.1 F 12/02/17 13:38 Pulse 77 12/02/17 13:38 Resp 18 12/02/17 13:38 BP 109/69 12/02/17 13:38 Pulse Ox 100 12/02/17 13:38 - Medical History PMH: HTN, Hypercholesterolemia - Surgical History Surgical History: No Surg Hx - Family History Family History: States: CAD - Living Arrangements Living Arrangements: With Family - Social History Current smoker - smoking cessation education provided: No Alcohol: None Drugs: Denies - Immunization History Hx Tetanus Toxoid Vaccination: No (not sure of last booster) - Home Medications Home Medications: Ambulatory Orders Medication Instructions Recorded Aspirin [Aspirin Chewable] 81 mg PO DAILY 12/12/16 Atorvastatin [Lipitor] 10 mg PO DAILY #30 tab 12/12/16 Carvedilol [Coreg] 3.125 mg PO Q12 #60 tab 12/12/16 Furosemide [Lasix] 40 mg PO DAILY #30 tablet 12/12/16 Lisinopril [Zestril] 5 mg PO DAILY #30 tab 12/12/16 Spironolactone [Aldactone] 12.5 mg PO DAILY #30 tablet 12/12/16 Ibuprofen [Motrin Tab] 800 mg PO Q8 PRN #20 tab 12/02/17 - Allergies Allergies/Adverse Reactions: Allergies Allergy/AdvReac Type Severity Reaction Status Date / Time No Known Allergies Allergy Verified 12/02/17 13:38 Review of Systems ROS Statement: Except As Marked, All Systems Reviewed And Found Negative Musculoskeletal: Positive for: Hand Pain (left index finger laceration) Physical Exam - Reviewed Nursing Documentation Reviewed: Yes Vital Signs Reviewed: Yes - Physical Exam Appears: Positive for: Well, Non-toxic, No Acute Distress Head Exam: Positive for: ATRAUMATIC, NORMOCEPHALIC Skin: Positive for: Normal Color. Negative for: Rash Eye Exam: Positive for: Normal appearance Rectal: Positive for: Hemorrhoids Extremity: Positive for: Other (2 cm superficial laceration to dorsal aspect of left index finger with mild bleeding, full rom of affected digit, sensation intact) Neurologic/Psych: Positive for: Alert, Oriented - ECG O2 Sat by Pulse Oximetry: 100 (RA) Pulse Ox Interpretation: Normal Medical Decision Making Medical Decision Making: Time Initial Impression: 52 y/o male with left index finger laceration. Initial Plan: --Adacel 0.5 ml IM --Laceration repair See procedure note, patient given wound care instructions, rx motrin for pain control. Scribe Attestation: Documented by Hank Giron, acting as a scribe for Valeria Dinh PA-C Provider Scribe Attestation: All medical record entries made by the Scribe were at my direction and personally dictated by me. I have reviewed the chart and agree that the record accurately reflects my personal performance of the history, physical exam, medical decision making, and the department course for this patient. I have also personally directed, reviewed, and agree with the discharge instructions and disposition. Procedures - Laceration/Wound Repair 2 cm left index finger laceration Wound Length (cm): 2 Wound's Depth, Shape: superficial Wound Explored: clean Betadine Prep?: Yes Anesthesia: 1% Lidocaine Volume Anesthetic (ccs): 6 Wound Debrided: minimal Wound Repaired With: Sutures Suture Size/Type: 5:0, nylon (simple runnng suture) Layer Closure?: No Wound Complexity: Simple Sterile Dressing Applied?: Yes Splint Applied?: No Sling Applied?: No Progress: Procedure was tolerated well by patient, minimal blood loss, no complications. Tetanus booster ordered. Disposition - Clinical Impression Clinical Impression: Finger laceration, Requires a booster tetanus - Patient ED Disposition Is Patient to be Admitted: No Counseled Patient/Family Regarding: Diagnosis, Need For Followup, Rx Given - Disposition Referrals: [facility] [Outside] Disposition: Routine/Home Disposition Time: 14:28 Condition: STABLE Additional Instructions: Keep wound clean and dry. Wash daily with soap and water. Take rx meds as directed as needed for pain. Apply Neosporin once per day only. Wound check 2- 3 days, suture removal 10-14 days. Prescriptions: Ibuprofen [Motrin Tab] 800 mg PO Q8 PRN #20 tab PRN Reason: Pain, Moderate (4-7) Instructions: Laceration Repair With Stitches (DC), Diphtheria and Tetanus Toxoids, and Acellular Pertussis Vaccine Forms: [employer] (Albanian) Print Language: SCOTTISH
== END 2017-12-02 14:45 | disposition home or self-care (01) ==
LOC: H.ER 13:08
DX: S61.211A Laceration without foreign body of left index finger without damage to nail, initial encounter (principal); Z23 Encounter for immunization; W26.0XXA Contact with knife, initial encounter; Y93.G1 Activity, food preparation and clean up; Y92.9 Unspecified place or not applicable; I10 Essential (primary) hypertension; Z79.82 Long term (current) use of aspirin; Z82.49 Family history of ischemic heart disease and other diseases of the circulatory system; E78.00 Pure hypercholesterolemia, unspecified

== ENCOUNTER 2017-12-09 09:34 | Emergency (ER) | payer OTHER, SELFPAY ==
[2017-12-09 09:40] VITALS: BP 133/81; PULSE 81; O2SAT 99
[2017-12-09 09:42] VITALS: BMI 36.5
--- NOTE | 2017-12-09 10:28 | ED PDOC ---
HPI: Wound Care - HPI Time Seen by Provider: 12/09/17 09:52 Chief Complaint (Nursing): Suture/Staple Removal Chief Complaint (Provider): Suture Removal History Per: Patient History Of Present Illness: 52 year old male with a history of CHF, hypercholesterolemia, and HTN presents to the ED for suture removal placed 8 days ago on the left second digit. He denies any redness, swelling, discharge, fever, injury, or medical complaint. PMD: [facility] Exam Limitations: no limitations Location Of Injury: Left: Hand (second digit) Past Medical History Vital Signs: Last Vital Signs Temp 98 F 12/09/17 09:38 Pulse 81 12/09/17 09:38 Resp BP 133/81 12/09/17 09:38 Pulse Ox 99 12/09/17 09:38 - Medical History PMH: CHF, HTN, Hypercholesterolemia Denies: Arthritis, Asthma, Atrial Fibrillation, COPD, Diabetes, Chronic Kidney Disease, Seizures - Surgical History Surgical History: Denies: CABG, Pacemaker - Family History Family History: States: Unknown Family Hx, CAD - Social History Current smoker - smoking cessation education provided: No Ex-Smoker (has not smoked in the last 12 months): No Alcohol: None Drugs: Denies - Immunization History Hx Tetanus Toxoid Vaccination: No (not sure of last booster) - Home Medications Home Medications: Ambulatory Orders Medication Instructions Recorded Aspirin [Aspirin Chewable] 81 mg PO DAILY 12/12/16 Atorvastatin [Lipitor] 10 mg PO DAILY #30 tab 12/12/16 Carvedilol [Coreg] 3.125 mg PO Q12 #60 tab 12/12/16 Furosemide [Lasix] 40 mg PO DAILY #30 tablet 12/12/16 Lisinopril [Zestril] 5 mg PO DAILY #30 tab 12/12/16 Spironolactone [Aldactone] 12.5 mg PO DAILY #30 tablet 12/12/16 Ibuprofen [Motrin Tab] 800 mg PO Q8 PRN #20 tab 12/02/17 - Allergies Allergies/Adverse Reactions: Allergies Allergy/AdvReac Type Severity Reaction Status Date / Time No Known Allergies Allergy Verified 12/02/17 13:38 Review of Systems ROS Statement: Except As Marked, All Systems Reviewed And Found Negative Constitutional: Negative for: Fever Musculoskeletal: Positive for: Other (no redness, no swelling, discharge to left second digit) Physical Exam - Reviewed Nursing Documentation Reviewed: Yes Vital Signs Reviewed: Yes - Physical Exam Appears: Positive for: Non-toxic, No Acute Distress Skin: Positive for: Normal Color, Warm, DRY Extremity: Positive for: Other (incision well healed, running suture in place). Negative for: Swelling Neurologic/Psych: Positive for: Alert (x3), Oriented - ECG O2 Sat by Pulse Oximetry: 99 (RA) Pulse Ox Interpretation: Normal Medical Decision Making Medical Decision Making: Time: 10:12 --Well healed incision on the left posterior second digit, running sutures in place, sutures removed without difficulty, finger has full range of motion, and dressing applied. Scribe Attestation: Documented by Poppy Hope, acting as a scribe for Lizeth Skinner MD Provider Scribe Attestation: All medical record entries made by the Scribe were at my direction and personally dictated by me. I have reviewed the chart and agree that the record accurately reflects my personal performance of the history, physical exam, medical decision making, and the department course for this patient. I have also personally directed, reviewed, and agree with the discharge instructions and disposition. Disposition - Clinical Impression Clinical Impression: Removal of suture - Disposition Referrals: [facility] [Outside] Disposition Time: 10:10 Condition: GOOD Instructions: Stitches Removal Forms: [employer] (Irish) Print Language: SOUTH KOREAN
[2017-12-09 10:54] VITALS: RESP 16; TEMP 98
== END 2017-12-09 10:52 | disposition home or self-care (01) ==
LOC: H.ER 09:34
DX: Z48.02 Encounter for removal of sutures (principal)

== ENCOUNTER 2018-05-21 07:11 | Emergency (ER) | payer SELFPAY ==
[2018-05-21 07:22] VITALS: BMI 35.2
--- NOTE | 2018-05-21 08:24 | ED PDOC ---
Lower Extremity Pain/Injury Time Seen by Provider: 05/21/18 08:08 Chief Complaint (Nursing): Lower Extremity Problem/Injury Chief Complaint (Provider): Right foot and ankle pain History Per: Patient History/Exam Limitations: no limitations Onset/Duration Of Symptoms: Days Current Symptoms Are (Timing): Better Additional History Per: Patient Additional Complaint(s): 53yo male, with history of hypertension, high cholesterol, comes to ER reporting right foot and ankle pain x 1 week, but worsening since yesterday. Patient states he is unable to walk or sleep due to the pain; he has not taken any pain medications. Of note, patient states he had a similar episode in the past with foot and ankle pain and associated redness and swelling and was tested for gout, with negative findings. Patient currently denies any redness, swelling or warmth to his ankle. He reports occasional calf and hip pain as well. He denies any falls, direct injury to the foot, weakness, or numbness of the foot. Patient has no additional complaints. PMD: [facility] Past Medical History Reviewed: Historical Data, Nursing Documentation, Vital Signs Vital Signs: Last Vital Signs Temp 98.7 F 05/21/18 07:20 Pulse 77 05/21/18 07:20 Resp 18 05/21/18 07:20 BP 137/88 05/21/18 07:20 Pulse Ox 100 05/21/18 07:20 - Medical History PMH: CHF, HTN, Hypercholesterolemia Denies: Arthritis, Asthma, Atrial Fibrillation, COPD, Diabetes, Chronic Kidney Disease, Seizures - Surgical History Surgical History: No Surg Hx Denies: CABG, Pacemaker - Family History Family History: States: CAD - Immunization History Hx Tetanus Toxoid Vaccination: No (not sure of last booster) - Home Medications Home Medications: Ambulatory Orders Medication Instructions Recorded Aspirin [Aspirin Chewable] 81 mg PO DAILY 12/12/16 Atorvastatin [Lipitor] 10 mg PO DAILY #30 tab 12/12/16 Carvedilol [Coreg] 3.125 mg PO Q12 #60 tab 12/12/16 Furosemide [Lasix] 40 mg PO DAILY #30 tablet 12/12/16 Lisinopril [Zestril] 5 mg PO DAILY #30 tab 12/12/16 Spironolactone [Aldactone] 12.5 mg PO DAILY #30 tablet 12/12/16 Ibuprofen [Motrin Tab] 800 mg PO Q8 PRN #20 tab 12/02/17 Colchicine 0.6 mg PO TID #15 tablet 05/21/18 oxyCODONE/Acetaminophen [Percocet 1 ea PO Q6 PRN #9 tab 05/21/18 5/325 mg Tab] - Allergies Allergies/Adverse Reactions: Allergies Allergy/AdvReac Type Severity Reaction Status Date / Time No Known Allergies Allergy Verified 12/02/17 13:38 Review of Systems ROS Statement: Except As Marked, All Systems Reviewed And Found Negative Constitutional: Negative for: Fever, Chills Musculoskeletal: Positive for: Foot Pain (right foot and ankle pain) Neurological: Negative for: Weakness, Numbness Physical Exam - Reviewed Nursing Documentation Reviewed: Yes Vital Signs Reviewed: Yes - Physical Exam Appears: Positive for: Non-toxic Skin: Positive for: Normal Color Pulses-Dorsalis Pedis (R): 2+ Extremity: Positive for: Normal ROM (FROM at right ankle but with pain), Te nderness (tenderness to right ankle, right lateral and medial foot.), Capillary Refill (< 2 seconds). Negative for: Pedal Edema, Calf Tenderness, Deformity, Swelling Neurologic/Psych: Positive for: Alert, Oriented. Negative for: Motor/Sensory Deficits - Laboratory Results Result Diagrams: 05/21/18 09:06 05/21/18 09:06 - ECG O2 Sat by Pulse Oximetry: 100 (RA) Pulse Ox Interpretation: Normal Medical Decision Making Medical Decision Making: Impression: Right foot and ankle pain Differential: Arthritis, gout, pseudo-gout, r/o DVT Plan: -- Labs -- XR Right ankle -- US Doppler right lower extremities 0930 XR Right Ankle FINDINGS: BONES: No acute fracture or destructive bony lesion identified. JOINTS: Normal. No osteoarthritis. Ankle mortise maintained. Talar dome intact SOFT TISSUES: Normal. OTHER FINDINGS: None. IMPRESSION: Unremarkable right ankle radiographs. 0949 Case discussed with podiatry resident, who will evaluate patient in ER. 1029 Labs reviewed, including ESR and uric acid and no clinically significant abnormalities noted. 1122 US Doppler FINDINGS: COMMON FEMORAL VEIN: Unremarkable. SUPERFICIAL FEMORAL VEIN: Unremarkable. POPLITEAL VEIN: Unremarkable. POSTERIOR TIBIAL VEIN: Unremarkable. OTHER FINDINGS: None. IMPRESSION: No evidence of deep venous thrombosis in the right lower extremity. 1313 Patient seen and evaluated by podiatry resident who states per Dr. Benson, patient to be discharged home with rs for colchicine and follow up at podiatry office. Patient informed of plan and is agreeable. On reassessment, he reports improvement of symptoms and is stable for discharge. Scribe Attestation: Documented by Elana Calderón, acting as a scribe for Spencer Paez MD. Provider Scribe Attestation: All medical record entries made by the Scribe were at my direction and personally dictated by me. I have reviewed the chart and agree that the record accurately reflects my personal performance of the history, physical exam, medical decision making, and the department course for this patient. I have also personally directed, reviewed, and agree with the discharge instructions and disposition. Disposition - Clinical Impression Clinical Impression: Ankle pain, Gout attack - Patient ED Disposition Is Patient to be Admitted: No Doctor Will See Patient In The: Office Counseled Patient/Family Regarding: Studies Performed, Diagnosis, Need For Followup - Disposition Referrals: Podiatry Clinic [Outside] Disposition: Routine/Home Disposition Time: 13:04 Condition: GOOD Additional Instructions: [facility], thank you for letting us take care of you today. Your provider was Spencer Paez MD and you were treated for RIGHT FOOT PAIN. The emergency medical care you received today was directed at your acute symptoms. If you were prescribed any medication, please fill it and take as di rected. It may take several days for your symptoms to resolve. Return to the Emergency Department if your symptoms worsen, do not improve, or if you have any other problems. Please contact your doctor or call one of the physicians/clinics you have been referred to that are listed on the Patient Visit Information form that is included in your discharge packet. Bring any paperwork you were given at discharge with you along with any medications you are taking to your follow up visit. Our treatment cannot replace ongoing medical care by a primary care provider outside of the emergency department. Thank you for allowing the [facility] team to be part of your care today. If you had an X-Ray or CT scan: A Radiologist will review the ED reading if any change in treatment is needed we will contact you. If you had a blood, urine, or wound culture: It will take several days for the results, if any change in treatment is needed we will contact you. If you had an STI test: It will take 48 hours for the results. Please call after 1 week if you have not heard back. Prescriptions: Colchicine 0.6 mg PO TID #15 tablet oxyCODONE/Acetaminophen [Percocet 5/325 mg Tab] 1 ea PO Q6 PRN #9 tab PRN Reason: Pain, Severe (8-10) Instructions: Gout Forms: [employer] (Maori) Print Language: GEORGIAN
[2018-05-21] MEDS ORDERED: Oxycodone/Acetaminophen 5/325 mg Tab PO STA (08:29)
--- NOTE | 2018-05-21 09:08 | RAD ---
Date of service: 05/21/2018 PROCEDURE: Right Ankle Radiographs. HISTORY: right ankle pain no injury COMPARISON: None available. FINDINGS: BONES: No acute fracture or destructive bony lesion identified. JOINTS: Normal. No osteoarthritis. Ankle mortise maintained. Talar dome intact SOFT TISSUES: Normal. OTHER FINDINGS: None. IMPRESSION: Unremarkable right ankle radiographs.
[2018-05-21] MEDS ORDERED: Oxycodone/Acetaminophen 5/325 mg Tab ONE (09:10)
[2018-05-21 09:25] LABS: BASO % 0.2 % (0.0-2.0); EOS # 0.2 K/uL (0.0-0.7); EOS % 1.8 % (0.0-4.0); HEMOGLOBIN 15.8 g/dL (12.0-18.0); LYMPH # 1.6 K/uL (1.0-4.3); LYMPH % 17.6 % (20.0-40.0); MEAN CORPUSCULAR HGB CONC 32.6 g/dL (33.0-37.0); MEAN PLATELET VOLUME 9.8 fl (7.2-11.7); MONO # 0.6 K/uL (0.0-0.8); NEUT # 6.9 K/uL (1.8-7.0); NEUT % 74.4 % (50.0-75.0); NRBC % 0.1 % (0.0-0.0); RBC 5.44 Mil/uL (4.40-5.90); WHITE BLOOD COUNT 9.2 K/uL (4.8-10.8)
[2018-05-21 09:33] LABS: BLOOD UREA NITROGEN 15 mg/dl (9-20); CALCIUM 9.4 mg/dL (8.4-10.2); GFR NON-AFRICAN AMERICAN > 60; URIC ACID 8.1 mg/Dl (3.5-8.5)
--- NOTE | 2018-05-21 11:21 | US ---
Date of service: 05/21/2018 PROCEDURE: Right lower extremity venous duplex Doppler. HISTORY: right lower leg pain COMPARISON: None available. TECHNIQUE: Common femoral, superficial femoral, popliteal and posterior tibial veins were evaluated. Flow was assessed with color Doppler, compressibility, assessment of phasic flow and augmentation response. FINDINGS: COMMON FEMORAL VEIN: Unremarkable. SUPERFICIAL FEMORAL VEIN: Unremarkable. POPLITEAL VEIN: Unremarkable. POSTERIOR TIBIAL VEIN: Unremarkable. OTHER FINDINGS: None. IMPRESSION: No evidence of deep venous thrombosis in the right lower extremity.
--- NOTE | 2018-05-21 12:57 | CP.PCM.CON ---
History of Present Illness - History of Present Illness History of Present Illness: Podiatry consult note for Dr. Benson 53yo male, with history of hypertension, high cholesterol, seen in the ED reporting right foot and ankle pain x 1 week, but worsening since yesterday. Patient states he is unable to walk or sleep due to the pain; he has not taken any pain medications. Patient currently denies any redness, swelling or warmth to his ankle. He reports occasional calf and hip pain as well.Denies any trauma to the area. rates his dutta 01/16. 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 denies f/n/v/sob. Past Patient History - Past Medical History & Family History Past Medical History?: No - Past Social History Smoking Status: Former Smoker - CARDIAC Hx Atrial Fibrillation: No Hx Congestive Heart Failure: Yes Hx Hypercholesterolemia: Yes Hx Hypertension: Yes Hx Pacemaker: No - PULMONARY Hx Asthma: No Hx Chronic Obstructive Pulmonary Disease (COPD): No - NEUROLOGICAL Hx Seizures: No - HEENT Hx HEENT Problems: No - RENAL Hx Chronic Kidney Disease: No - ENDOCRINE/METABOLIC Hx Endocrine Disorders: No - HEMATOLOGICAL/ONCOLOGICAL Hx Blood Disorders: No - INTEGUMENTARY Hx Dermatological Problems: No - MUSCULOSKELETAL/RHEUMATOLOGICAL Hx Arthritis: No - GASTROINTESTINAL Hx Gastrointestinal Disorders: No - GENITOURINARY/GYNECOLOGICAL Hx Genitourinary Disorders: No - PSYCHIATRIC Hx Psychophysiologic Disorder: No Hx Substance Use: No - SURGICAL HISTORY Hx Coronary Artery Bypass Graft: No - ANESTHESIA Hx Anesthesia: No Meds Home Medications: Home Medication List Medication Instructions Recorded Confirmed Type Colchicine 0.6 mg PO TID #15 tablet 05/21/18 Rx oxyCODONE/Acetaminophen [Percocet 1 ea PO Q6 PRN #9 tab 05/21/18 Rx 5/325 mg Tab] Allergies/Adverse Reactions: Allergies Allergy/AdvReac Type Severity Reaction Status Date / Time No Known Allergies Allergy Verified 12/02/17 13:38 Physical Exam - Constitutional Appears: Well, Non-toxic, No Acute Distress - Head Exam Head Exam: ATRAUMATIC, NORMOCEPHALIC - Extremities Exam Additional comments: Vascular: DP/PT 2/4, CFT <3 secs x10, TG warm to warm, no erythema noted, no edema noted. neuro: protective sensation intact via ipswich 10/11 derm: no open lesions, no erythema noted, no edema noted, no fluctuance or increased warmth, no clinical signs of infection ortho: minimal pain with ROM Of the right ankle joint, no pain with inversion or eversion, pain on palpation to the anterior aspect of the ankle joint Results - Vital Signs Recent Vital Signs: Last Vital Signs Temp 98.7 F 05/21/18 07:20 Pulse 77 05/21/18 07:20 Resp 18 05/21/18 07:20 BP 137/88 05/21/18 07:20 Pulse Ox 100 05/21/18 11:22 - Labs Result Diagrams: 05/21/18 09:06 05/21/18 09:06 Labs: Laboratory Results - last 24 hr 05/21/18 05/21/18 09:06 09:06 WBC 9.2 RBC 5.44 Hgb 15.8 Hct 48.4 MCV 89.0 MCH 29.0 MCHC 32.6 L RDW 14.0 Plt Count 196 MPV 9.8 Neut % (Auto) 74.4 Lymph % (Auto) 17.6 L [place] % (Auto) 6.0 Eos % (Auto) 1.8 Baso % (Auto) 0.2 Neut # (Auto) 6.9 Lymph # (Auto) 1.6 [place] # (Auto) 0.6 Eos # (Auto) 0.2 Baso # (Auto) 0.0 ESR 20 Sodium 138 Potassium 4.5 Chloride 105 Carbon Dioxide 28 Anion Gap 10 BUN 15 Creatinine 0.9 Est GFR ( Amer) > 60 Est GFR (Non-Af Amer) > 60 Random Glucose 120 H Uric Acid 8.1 Calcium 9.4 Assessment & Plan - Assessment and Plan (Free Text) Assessment: 53 yo male seen and evaluated at bedside for ankle pain; gout vs arthritis Plan: Patient seen and evaluated History and plan discussed in detail with the attending, Dr Bneson X-rays of the ankle reviewed; no acute osseous abnormality noted possible etiology of ankle pain discussed with the patient; gout vs arthritis WBC 9.2 Uric Acid 8.1 Patient advised to reduce protein intake to avoid gouty attack Colchicine .6 mg PO tid x 5 days rx by the ED doctor Patient to follow up in podiatry clinic within two weeks Educated on signs nad symptoms of infection; advised to return to the ED if needed thank you for the consult
[2018-05-21 13:29] VITALS: BP 125/80; PULSE 85; RESP 16; TEMP 98.1; O2SAT 99
== END 2018-05-21 13:29 | disposition home or self-care (01) ==
LOC: H.ER 07:11
DX: M10.9 Gout, unspecified (principal); M25.571 Pain in right ankle and joints of right foot; I11.0 Hypertensive heart disease with heart failure; Z82.49 Family history of ischemic heart disease and other diseases of the circulatory system; Z87.891 Personal history of nicotine dependence; Z79.82 Long term (current) use of aspirin
CPT/HCPCS: 73610; 80048; 84550; 85025; 85651; 93971; 96374; 99282; J1885